=== PATIENT | male | born 1960 | race African-American/Black ===

== ENCOUNTER 2018-09-06 16:54 | Inpatient (IN) ==
[2018-09-06] MEDS ORDERED: SODIUM CHLORIDE 0.9% 1,000 ML IV STA ×2 (18:07→19:18)
[2018-09-06] MEDS ORDERED: ONDANSETRON 4 MG/2 ML VIAL IV STA (18:09)
[2018-09-06 18:13] LABS: Basophils % 0.2 % (0.0-0.8); Eosinophils # 0.1 10*3/uL (0.0-0.87); Eosinophils % 0.4 % (0.00-10.9); Hematocrit 45.9 VOL% (42.0-52.0); Hemoglobin 16.1 GM/DL (14.0-18.0); Immature Granulocytes % 0.7 %; Immature Granulocytes Absolute 0.09 #; Lymphocytes # 1.3 10*3/uL (1.4-4.0); Lymphocytes % 10.3 % (21.2-54.2); Mean Corpuscular HGB Conc 35.1 GM/DL (32-36); Mean Corpuscular Hemoglobin 35 PG (27-34); Mean Corpuscular Volume 100.9 FL (87-102); Monocytes # 1.1 10*3/uL (0.11-0.8); Monocytes % 8.3 % (1.7-12.7); NRBC # 0.03 10*3/uL; Neutrophils # 10.4 10*3/uL (1.4-7.4); Neutrophils % 80.1 % (38.7-73.9); Platelet Count 305 T/CUMM (130-400); Red Blood Count 4.55 MC/CUMM (3.8-5.5); Red Cell Distribution Width 15.5 % (9.3-17.3)
[2018-09-06 18:25] LABS: Alanine Aminotransferase 111 U/L (16-61); Albumin 3.6 G/DL (3.4-5.0); Alkaline Phosphatase 237 U/L (45-117); Aspartate Amino Transferase 86 U/L (0-37); Blood Urea Nitrogen 61 MG/DL (7-18); Calcium 9.2 MG/DL (8.5-10.1); Glucose 110 MG/DL (74-106); Osmolality,Calculated 283.4 MOS/KG (273-304); Potassium 3.3 MMOL/L (3.5-5.1); Sodium 133 MMOL/L (136-145); Total Protein 9.4 G/DL (6.4-8.3)
[2018-09-06 18:53] LABS: Apearance,Urine Slightly Hazy (Clear); Bacteria,Urine Occasional /HPF (Few); Bilirubin,Urine Negative (Negative); Blood, Urine Negative (Negative); Glucose,Urine (UA) Negative (Negative); Hyaline Casts,Urine 89 /LPF (0-3); Ketones,Urine Negative (Negative); Mucus,Urine Occasional /LPF (Occasional); Nitrite,Urine Negative (Negative); Protein,Urine 30 MG/DL; RBC,Urine 1 /HPF (0-4); Squamous Epithelial Cell,Urine Occasional /HPF (0-10); Urine Color Amber (Yellow); Urine Specific Gravity 1.021 (1.001-1.035); WBC,Urine 20 /HPF (0-6)
[2018-09-06] MEDS ORDERED: ONDANSETRON 4 MG/2 ML VIAL IV PRN (20:26)
[2018-09-06] MEDS ORDERED: ACETAMINOPHEN 325 MG TABLET PO PRN (20:26)
[2018-09-06] MEDS ORDERED: DONEPEZIL 5 MG TABLET PO SCH (21:00)
[2018-09-06] MEDS ORDERED: ENOXAPARIN 30 MG/0.3 ML SYRINGE SUBCUT SCH (21:00)
[2018-09-06] MEDS ORDERED: LEVOFLOXACIN INJ 500 MG in PREMIX 1 EACH IV ONE (22:00)
[2018-09-06] MEDS: SODIUM CHLORIDE 0.45% 1,000 ML IV SCH (22:40)
[2018-09-07] MEDS: SODIUM CHLORIDE 0.45% 1,000 ML IV SCH (05:15)
[2018-09-07 06:12] LABS: Basophils % 0.2 % (0.0-0.8); Eosinophils # 0.1 10*3/uL (0.0-0.87); Eosinophils % 0.8 % (0.00-10.9); Hematocrit 34.2 VOL% (42.0-52.0); Hemoglobin 11.7 GM/DL (14.0-18.0); Immature Granulocytes % 0.6 %; Immature Granulocytes Absolute 0.07 #; Lymphocytes # 1.4 10*3/uL (1.4-4.0); Lymphocytes % 12.5 % (21.2-54.2); Mean Corpuscular HGB Conc 34.2 GM/DL (32-36); Mean Corpuscular Hemoglobin 35 PG (27-34); Monocytes # 1.2 10*3/uL (0.11-0.8); Monocytes % 10.8 % (1.7-12.7); Neutrophils # 8.4 10*3/uL (1.4-7.4); Neutrophils % 75.1 % (38.7-73.9); Platelet Count 220 T/CUMM (130-400); Red Blood Count 3.32 MC/CUMM (3.8-5.5); Red Cell Distribution Width 15.4 % (9.3-17.3); White Blood Count 11.1 T/CUMM (4-12)
[2018-09-07 06:51] LABS: % Iron Saturation 52.3 % (18-50); Ferritin 223.4 ng/ml (26-388)
[2018-09-07 07:05] LABS: Calcium 7.9 MG/DL (8.5-10.1); Osmolality,Calculated 285.7 MOS/KG (273-304); Thyroid Stimulating Hormone 0.489 uIU/ml (0.358-3.74)
[2018-09-07 07:21] LABS: Sedimentation Rate-Westergren 71 MM/HR (0-20)
[2018-09-07 07:24] LABS: Albumin 2.5 G/DL (3.4-5.0); Bilirubin,Direct 0.4 MG/DL (0.0-0.20); Bilirubin,Indirect 0.4 MG/DL (0.0-1.0); Bilirubin,Total 0.8 MG/DL (0.2-1.0); Total Protein 6.6 G/DL (6.4-8.3)
[2018-09-07] MEDS ORDERED: MAGNESIUM SULF RIDER 2 GM in PREMIX 1 EACH IV ONE (07:33)
[2018-09-07] MEDS ORDERED: POTASSIUM CHLORIDE RIDER 10 MEQ in PREMIX 1 EACH IV PRN (07:34)
[2018-09-07] MEDS ORDERED: POTASSIUM CHLORIDE INJ 20 MEQ in SODIUM CHLORIDE 0.45% 1,000 ML IV SCH (07:35)
[2018-09-07 07:37] LABS: HIV Antigen/Antibody Result Nonreactive (Nonreactive)
[2018-09-07 07:40] LABS: Folate 8.2 NG/ML (5.4-24.0); Hepatitis A Ab IgM Quant 0.13 Index; Hepatitis A Ab IgM Result Negative (Negative); Hepatitis B Core IgM Quant 0.35 Index; Hepatitis B Core IgM Result Negative (Negative); Hepatitis B Surface Ag Quant < 0.10 Index; Hepatitis B Surface Ag Result Negative (Negative); Hepatitis C Virus Ab Quant 0.02 Index; Hepatitis C Virus Ab Result Negative (Negative); Vitamin B12 610 PG/ML (211-911)
[2018-09-07] MEDS: predniSONE 20 MG TABLET PO SCH (10:14)
[2018-09-07] MEDS: POTASSIUM CHLORIDE 20 MEQ TABLET PO PRN ×3 (10:14→16:43)
[2018-09-07] MEDS: PANTOPRAZOLE 40 MG VIAL IV SCH ×2 (10:16→22:07)
[2018-09-07] MEDS: THIAMINE 200 MG/2 ML VIAL IV SCH (10:23)
[2018-09-07] MEDS: DEXT 5% NACL 0.45% KCL 20 MEQ 20 MEQ/1,000 ML BAG IV SCH ×3 (10:23→19:00)
[2018-09-07 12:09] LABS: Hemoglobin A1 (Alkaline) 97.6 % (96.5-98.5); Hemoglobin A2 (Alkaline) 2.4 % (1.5-3.5)
[2018-09-07 12:11] LABS: Albumin (SPE) 3.1 G/DL (3.2-5.3); Albumin (SPE) Rel % 47.6 %; Alpha 1 (SPE) 0.2 G/DL (0.1-0.4); Alpha 1 (SPE) Rel % 3.2 %; Alpha 2 (SPE) 0.7 G/DL (0.4-1.0); Alpha 2 (SPE) Rel % 10.4 %; Beta (SPE) 0.8 G/DL (0.5-1.1); Total Protein (Chem) 6.5 G/DL (6.4-8.3)
[2018-09-07 12:12] LABS: Beta (SPE) Rel % 12.9 %; Gamma (SPE) 1.7 G/DL (0.7-1.7); Gamma (SPE) Rel % 25.9 %
[2018-09-07] MEDS ORDERED: LEVOFLOXACIN INJ 250 MG in PREMIX 1 EACH IV SCH (21:00)
[2018-09-07] MEDS ORDERED: ENOXAPARIN 40 MG/0.4 ML SYRINGE SUBCUT SCH (21:00)
[2018-09-08 05:50] LABS: Calcium 8.3 MG/DL (8.5-10.1); Osmolality,Calculated 263.8 MOS/KG (273-304); Potassium 4.6 MMOL/L (3.5-5.1)
[2018-09-08] MEDS: DEXT 5% NACL 0.45% KCL 20 MEQ 20 MEQ/1,000 ML BAG IV SCH (06:00)
[2018-09-08] MEDS ORDERED: FLUCONAZOLE 100 MG TABLET PO SCH (09:00)
[2018-09-08] MEDS ORDERED: LIDOCAINE 2% 5 ML VIAL ONE (10:00)
[2018-09-08] MEDS ORDERED: PHENYLEPHRINE 1 MG/10 ML SYRINGE IV ONE (10:00)
[2018-09-08] MEDS ORDERED: PROPOFOL 200 MG/20 ML VIAL IV ONE (10:00)
[2018-09-08] MEDS: PANTOPRAZOLE 40 MG VIAL IV SCH (10:44)
[2018-09-08] MEDS: predniSONE 20 MG TABLET PO SCH (10:44)
[2018-09-08] MEDS: THIAMINE 200 MG/2 ML VIAL IV SCH (10:48)
[2018-09-08 11:14] LABS: Basophils % 0.2 % (0.0-0.8); Eosinophils % 0.2 % (0.00-10.9); Hematocrit 33.1 VOL% (42.0-52.0); Hemoglobin 11.7 GM/DL (14.0-18.0); Immature Granulocytes % 0.4 %; Immature Granulocytes Absolute 0.04 #; Lymphocytes # 1.8 10*3/uL (1.4-4.0); Lymphocytes % 18.2 % (21.2-54.2); Mean Corpuscular HGB Conc 35.3 GM/DL (32-36); Mean Corpuscular Hemoglobin 36 PG (27-34); Mean Corpuscular Volume 101.2 FL (87-102); Mean Platelet Volume 10.9 FL (9.6-12.0); Monocytes # 0.9 10*3/uL (0.11-0.8); Monocytes % 9.2 % (1.7-12.7); Neutrophils # 7.1 10*3/uL (1.4-7.4); Neutrophils % 71.8 % (38.7-73.9); Platelet Count 162 T/CUMM (130-400); Red Blood Count 3.27 MC/CUMM (3.8-5.5); Red Cell Distribution Width 15.2 % (9.3-17.3); White Blood Count 9.8 T/CUMM (4-12)
[2018-09-08 20:14] VITALS: BP 102/59
[2018-09-09 17:00] LABS: TB2 Ag Minus Result -0.01 IU/mL
[2018-09-11 23:20] LABS: IgA Serum (MAYO) 1100 mg/dL (61 - 356)
[2018-09-15 11:12] LABS: Tissue Transglutaminase IgA Ab 1.7 U/mL
== END 2018-09-08 16:21 | disposition home health service (06) | DRG 683 ==
LOC: N.ED 16:54 → N.3E 20:26
PROVIDERS: ADMIT Internal Medicine; ATTEND Internal Medicine

== ENCOUNTER 2021-03-31 08:10 | Inpatient (IN) ==
[2021-03-31] MEDS ORDERED: ACETAMINOPHEN 500 MG TABLET PO STA (09:12)
[2021-03-31 09:21] LABS: Basophils % 0.1 % (0.0-0.8); Hematocrit 33.9 VOL% (42.0-52.0); Hemoglobin 11.5 GM/DL (14.0-18.0); Immature Granulocytes Absolute 0.07 #; Lymphocytes # 1.6 10*3/uL (1.4-4.0); Lymphocytes % 21.7 % (21.2-54.2); Mean Corpuscular HGB Conc 33.9 GM/DL (32-36); Mean Corpuscular Volume 109.7 FL (87-102); Mean Platelet Volume 9.7 FL (9.6-12.0); Monocytes % 7.8 % (1.7-12.7); NRBC # 0.02 10*3/uL; Neutrophils % 69.4 % (38.7-73.9); Platelet Count 158 T/CUMM (130-400); Red Blood Count 3.09 MC/CUMM (3.8-5.5); Red Cell Distribution Width 17.5 % (9.3-17.3); White Blood Count 7.3 T/CUMM (4-12)
[2021-03-31 09:34] LABS: Bacteria,Urine Occasional /HPF (Few); Bilirubin,Urine Negative (Negative); Blood, Urine Negative (Negative); Glucose,Urine (UA) Negative (Negative); Hyaline Casts,Urine 9 /LPF (0-3); Ketones,Urine 20 mg/dL (Negative); Mucus,Urine Occasional /LPF (Occasional); Nitrite,Urine Negative (Negative); Protein,Urine 100 MG/DL; RBC,Urine <1 /HPF (0-4); Squamous Epithelial Cell,Urine Occasional /HPF (0-10); Urine Appearance CLEAR (Clear); Urine Color Amber (Yellow); Urine Specific Gravity 1.013 (1.001-1.035); Urine Urobilinogen < 2.0 EU/DL (0.2-1.0)
[2021-03-31 09:43] LABS: Albumin 2.3 G/DL (3.4-5.0); Bilirubin,Total 2.5 MG/DL (0.20-1.00); Calcium 8.5 MG/DL (8.5-10.1); Osmolality,Calculated 271.8 MOS/KG (273-304); Potassium 3.1 MMOL/L (3.5-5.1); Total Protein 8.6 G/DL (6.4-8.2)
[2021-03-31 09:48] LABS: Barbiturates Screen,Urine Negative (Negative); Benzodiazepines Screen,Urine Negative (Negative); Cannabinoid Screen,Urine Negative (Negative); Opiate Screen,Urine Negative (Negative); Phencyclidine Screen,Urine Negative (Negative)
[2021-03-31 09:59] LABS: Anisocytosis 1+; Band Neutrophils 1 % (0-10); Lymphocytes 21 % (20-55); Nucleated Red Blood Cells 1 (0-5); Segmented Neutrophils 73 % (50-85); Smudge Cells 1+; Total Cells Counted 100
[2021-03-31 10:00] LABS: Macrocytosis 2+
[2021-03-31] MEDS ORDERED: SODIUM CHLORIDE 0.9% 2,000 ML IV STA (10:00)
[2021-03-31] MEDS ORDERED: THIAMINE 200 MG/2 ML VIAL IV STA (11:27)
[2021-03-31] MEDS ORDERED: cefTRIAXone 1,000 MG in SODIUM CHLORIDE 0.9% 100 ML IV STA (11:28)
[2021-03-31] MEDS ORDERED: SODIUM CHLORIDE 0.9% 250 ML IV ONE (11:32)
[2021-03-31] MEDS ORDERED: ALBUTEROL 2.5 MG/3 ML NEB RESP TX PRN (12:13)
[2021-03-31] MEDS ORDERED: BISACODYL 5 MG TABLET PO PRN (12:13)
[2021-03-31] MEDS ORDERED: ONDANSETRON 4 MG/2 ML VIAL IV PRN (12:13)
[2021-03-31] MEDS ORDERED: NICOTINE 21 MG/24 HR PATCH TRANSDERM PRN (12:13)
[2021-03-31] MEDS ORDERED: GLUCAGON 1 MG VIAL IM PRN (12:13)
[2021-03-31] MEDS ORDERED: DEXTROSE 50% 25 GM/50 ML VIAL IV PRN (12:13)
[2021-03-31] MEDS ORDERED: LORazepam 2 MG/1 ML VIAL IV PRN (12:17)
[2021-03-31] MEDS ORDERED: chlordiazePOXIDE 25 MG CAPSULE PO STA (12:24)
[2021-03-31 13:28] LABS: Hepatitis B Core IgM Quant 0.15 Index; Hepatitis B Surface Ag Quant < 0.10 Index; Hepatitis B Surface Ag Result Non-Reactive (NonReactive); Hepatitis C Virus Ab Quant 0.18 Index; Hepatitis C Virus Ab Result Non-Reactive (NonReactive)
[2021-03-31] MEDS: SODIUM CHLORIDE 0.9% 1,000 ML IV SCH (14:23)
[2021-03-31] MEDS ORDERED: POTASSIUM PHOSPHATE 30 MMOL in SODIUM CHLORIDE 0.9% 250 ML IV ONE (15:00)
[2021-03-31] MEDS: PIPERACILLIN/TAZOBACTAM 3,375 MG in SODIUM CHLORIDE 0.9% 100 ML IV SCH ×2 (15:45→20:27)
[2021-03-31] MEDS: ENOXAPARIN 40 MG/0.4 ML SYRINGE SUBCUT SCH (16:08)
[2021-03-31] MEDS: VANCOMYCIN INJ 1,000 MG in SODIUM CHLORIDE 0.9% 250 ML IV SCH (16:08)
[2021-03-31] MEDS: PANTOPRAZOLE 40 MG TABLET PO SCH ×2 (16:08→20:27)
[2021-03-31] MEDS: chlordiazePOXIDE 25 MG CAPSULE PO SCH ×2 (16:08→22:17)
[2021-03-31] MEDS: LACTULOSE 20 GM/30 ML UDCUP PO SCH ×2 (16:08→20:27)
[2021-03-31] MEDS: DONEPEZIL 5 MG TABLET PO SCH (20:27)
[2021-03-31] MEDS: ACETAMINOPHEN 325 MG TABLET PO PRN (22:18)
[2021-04-01] MEDS: VANCOMYCIN INJ 1,000 MG in SODIUM CHLORIDE 0.9% 250 ML IV SCH ×2 (03:45→14:09)
[2021-04-01] MEDS: chlordiazePOXIDE 25 MG CAPSULE PO SCH ×3 (03:46→15:35)
[2021-04-01] MEDS: PIPERACILLIN/TAZOBACTAM 3,375 MG in SODIUM CHLORIDE 0.9% 100 ML IV SCH ×3 (05:02→21:36)
[2021-04-01 06:09] LABS: Basophils % 0.2 % (0.0-0.8); Hematocrit 30.1 VOL% (42.0-52.0); Hemoglobin 10.3 GM/DL (14.0-18.0); Immature Granulocytes % 1.2 %; Immature Granulocytes Absolute 0.12 #; Lymphocytes # 3.2 10*3/uL (1.4-4.0); Mean Corpuscular HGB Conc 34.2 GM/DL (32-36); Mean Corpuscular Volume 109.5 FL (87-102); Mean Platelet Volume 10.2 FL (9.6-12.0); Monocytes % 10.1 % (1.7-12.7); NRBC # 0.02 10*3/uL; Neutrophils % 56.5 % (38.7-73.9); Platelet Count 134 T/CUMM (130-400); Red Blood Count 2.75 MC/CUMM (3.8-5.5); Red Cell Distribution Width 17.5 % (9.3-17.3); White Blood Count 9.9 T/CUMM (4-12)
[2021-04-01 06:40] LABS: Albumin 1.9 G/DL (3.4-5.0); Bilirubin,Total 2.4 MG/DL (0.20-1.00); Calcium 7.2 MG/DL (8.5-10.1); Osmolality,Calculated 274.4 MOS/KG (273-304); Total Protein 7.5 G/DL (6.4-8.2)
[2021-04-01 06:44] LABS: Potassium 2.5 MMOL/L (3.5-5.1)
[2021-04-01 06:51] LABS: Folate 12.94 NG/ML (5.38-24.0)
[2021-04-01 07:30] LABS: Anisocytosis 2+; Macrocytosis 2+; Platelet Estimate Adequate; Target Cells 1+
[2021-04-01] MEDS: PANTOPRAZOLE 40 MG TABLET PO SCH ×3 (10:00→21:36)
[2021-04-01] MEDS: SODIUM CHLORIDE 0.9% 1,000 ML IV SCH ×4 (10:00→20:30)
[2021-04-01] MEDS: LACTULOSE 20 GM/30 ML UDCUP PO SCH ×2 (10:00→21:27)
[2021-04-01] MEDS: POTASSIUM CHLORIDE 20 MEQ TABLET PO PRN ×4 (10:00→21:36)
[2021-04-01] MEDS: FOLIC ACID 1 MG TABLET PO SCH (10:00)
[2021-04-01] MEDS: THIAMINE 100 MG TABLET PO SCH (10:00)
[2021-04-01] MEDS: MULTIVITAMIN (BEROCCA) TABLET PO SCH (10:00)
[2021-04-01] MEDS: ENOXAPARIN 40 MG/0.4 ML SYRINGE SUBCUT SCH (12:23)
[2021-04-01] MEDS ORDERED: MAGNESIUM SULF RIDER 4 GM/100 ML PREMIX IV PRN (16:21)
[2021-04-01] MEDS ORDERED: MAGNESIUM SULF RIDER 2 GM/50 ML PREMIX IV PRN (16:21)
[2021-04-01] MEDS: ACETAMINOPHEN 325 MG TABLET PO PRN (21:27)
[2021-04-01] MEDS: DONEPEZIL 5 MG TABLET PO SCH (21:27)
[2021-04-02] MEDS: SODIUM CHLORIDE 0.9% 1,000 ML IV SCH ×3 (01:09→12:55)
[2021-04-02] MEDS: chlordiazePOXIDE 25 MG CAPSULE PO SCH ×4 (01:09→17:14)
[2021-04-02] MEDS: IBUPROFEN 400 MG TABLET PO PRN (01:11)
[2021-04-02] MEDS: VANCOMYCIN INJ 1,000 MG in SODIUM CHLORIDE 0.9% 250 ML IV SCH ×2 (03:14→16:22)
[2021-04-02] MEDS: PIPERACILLIN/TAZOBACTAM 3,375 MG in SODIUM CHLORIDE 0.9% 100 ML IV SCH ×3 (05:15→20:59)
[2021-04-02 05:18] LABS: Basophils % 0.2 % (0.0-0.8); Hematocrit 29.5 VOL% (42.0-52.0); Hemoglobin 10.1 GM/DL (14.0-18.0); Immature Granulocytes % 2.5 %; Immature Granulocytes Absolute 0.32 #; Lymphocytes # 2.6 10*3/uL (1.4-4.0); Lymphocytes % 19.8 % (21.2-54.2); Mean Corpuscular HGB Conc 34.2 GM/DL (32-36); Mean Corpuscular Volume 109.7 FL (87-102); Monocytes % 6.8 % (1.7-12.7); NRBC # 0.02 10*3/uL; Neutrophils % 70.7 % (38.7-73.9); Platelet Count 143 T/CUMM (130-400); Red Blood Count 2.69 MC/CUMM (3.8-5.5); Red Cell Distribution Width 17.2 % (9.3-17.3)
[2021-04-02 05:50] LABS: Calcium 6.8 MG/DL (8.5-10.1); Osmolality,Calculated 277.3 MOS/KG (273-304); Potassium 3.2 MMOL/L (3.5-5.1)
[2021-04-02 06:01] LABS: Band Neutrophils 14 % (0-10); Lymphocytes 22 % (20-55); Nucleated Red Blood Cells 1 (0-5); Platelet Estimate Adequate; Segmented Neutrophils 57 % (50-85); Total Cells Counted 100
[2021-04-02 06:02] LABS: Anisocytosis 1+; Macrocytosis 2+; Polychromasia Slight; Target Cells Few
[2021-04-02] MEDS: PANTOPRAZOLE 40 MG TABLET PO SCH ×2 (08:57→20:59)
[2021-04-02] MEDS: LACTULOSE 20 GM/30 ML UDCUP PO SCH ×2 (08:57→20:59)
[2021-04-02] MEDS: FOLIC ACID 1 MG TABLET PO SCH (08:57)
[2021-04-02] MEDS: THIAMINE 100 MG TABLET PO SCH (08:57)
[2021-04-02] MEDS: MULTIVITAMIN (BEROCCA) TABLET PO SCH (10:10)
[2021-04-02] MEDS: ENOXAPARIN 40 MG/0.4 ML SYRINGE SUBCUT SCH (12:55)
[2021-04-02] MEDS ORDERED: chlordiazePOXIDE 25 MG CAPSULE PO PRN (17:15)
[2021-04-02] MEDS: DONEPEZIL 5 MG TABLET PO SCH (20:59)
[2021-04-03] MEDS: SODIUM CHLORIDE 0.9% 1,000 ML IV SCH ×2 (02:39→15:16)
[2021-04-03] MEDS: VANCOMYCIN INJ 1,000 MG in SODIUM CHLORIDE 0.9% 250 ML IV SCH (02:39)
[2021-04-03] MEDS: PIPERACILLIN/TAZOBACTAM 3,375 MG in SODIUM CHLORIDE 0.9% 100 ML IV SCH (05:38)
[2021-04-03] MEDS: THIAMINE 100 MG TABLET PO SCH (09:16)
[2021-04-03] MEDS: FOLIC ACID 1 MG TABLET PO SCH (09:16)
[2021-04-03] MEDS: PANTOPRAZOLE 40 MG TABLET PO SCH ×2 (09:16→20:55)
[2021-04-03] MEDS: MULTIVITAMIN (BEROCCA) TABLET PO SCH (09:16)
[2021-04-03] MEDS: LACTULOSE 20 GM/30 ML UDCUP PO SCH ×2 (09:16→20:55)
[2021-04-03] MEDS ORDERED: POTASSIUM CHLORIDE 20 MEQ TABLET PO ONE (15:00)
[2021-04-03] MEDS ORDERED: MAGNESIUM SULF RIDER 2 GM/50 ML PREMIX IV ONE (15:00)
[2021-04-03] MEDS: chlordiazePOXIDE 10 MG CAPSULE PO SCH ×2 (15:16→20:55)
[2021-04-03] MEDS: VALPROIC ACID INJ 500 MG in SODIUM CHLORIDE 0.9% 100 ML IV SCH (18:02)
[2021-04-03] MEDS: DONEPEZIL 5 MG TABLET PO SCH (20:55)
[2021-04-03] MEDS: MAGNESIUM OXIDE 400 MG TABLET PO SCH (20:55)
[2021-04-03] MEDS: ENOXAPARIN 40 MG/0.4 ML SYRINGE SUBCUT SCH (20:56)
[2021-04-03] MEDS: IBUPROFEN 400 MG TABLET PO PRN (20:56)
[2021-04-04] MEDS: SODIUM CHLORIDE 0.9% 1,000 ML IV SCH ×3 (00:37→13:51)
[2021-04-04] MEDS: VALPROIC ACID INJ 500 MG in SODIUM CHLORIDE 0.9% 100 ML IV SCH ×3 (01:30→17:11)
[2021-04-04] MEDS: MULTIVITAMIN (BEROCCA) TABLET PO SCH (08:47)
[2021-04-04] MEDS: LACTULOSE 20 GM/30 ML UDCUP PO SCH ×2 (08:48→21:30)
[2021-04-04] MEDS: PANTOPRAZOLE 40 MG TABLET PO SCH ×2 (08:49→21:30)
[2021-04-04] MEDS: LEVOFLOXACIN 750 MG TABLET PO SCH (08:49)
[2021-04-04] MEDS: FOLIC ACID 1 MG TABLET PO SCH (08:49)
[2021-04-04] MEDS: MAGNESIUM OXIDE 400 MG TABLET PO SCH ×2 (08:49→21:30)
[2021-04-04] MEDS: chlordiazePOXIDE 10 MG CAPSULE PO SCH ×3 (08:49→21:30)
[2021-04-04] MEDS: THIAMINE 100 MG TABLET PO SCH (08:49)
[2021-04-04 13:13] LABS: ABG Base Excess -5.6 MMOL/L (-2.5-2.5); ABG HCO3 19.6 MMOL/L (20-26); ABG Oxygen Saturation 81.4 % (95-100); ABG PCO2 21.8 MM HG (35-48); ABG PH 7.481 (7.35-7.45); ABG PO2 45.6 MM HG (80-95); ABG TCO2 14.6 MMOL/L (23-27)
[2021-04-04] MEDS ORDERED: PIPERACILLIN/TAZOBACTAM 3,375 MG in SODIUM CHLORIDE 0.9% 100 ML IV SCH (14:00)
[2021-04-04] MEDS ORDERED: DEXT 5% NACL 0.45% KCL 20 MEQ 20 MEQ/1,000 ML BAG IV SCH (18:30)
[2021-04-04] MEDS: ALBUTEROL/IPRATROPIUM 3 ML NEB RESP TX SCH (19:40)
[2021-04-04] MEDS: ENOXAPARIN 40 MG/0.4 ML SYRINGE SUBCUT SCH (21:26)
[2021-04-04] MEDS: DONEPEZIL 5 MG TABLET PO SCH (21:29)
[2021-04-05] MEDS: ALBUTEROL/IPRATROPIUM 3 ML NEB RESP TX SCH ×4 (00:03→19:21)
[2021-04-05] MEDS: VALPROIC ACID INJ 500 MG in SODIUM CHLORIDE 0.9% 100 ML IV SCH ×3 (01:07→17:17)
[2021-04-05 01:16] LABS: ABG Base Excess -8.6 MMOL/L (-2.5-2.5); ABG HCO3 17.5 MMOL/L (20-26); ABG Oxygen Saturation 94.8 % (95-100); ABG PH 7.454 (7.35-7.45); ABG PO2 72.9 MM HG (80-95); ABG TCO2 12.6 MMOL/L (23-27); Allen Test Positive
[2021-04-05 01:27] LABS: ABG PCO2 19.8 MM HG (35-48)
[2021-04-05] MEDS ORDERED: SUCCINYLCHOLINE 200 MG/10 ML VIAL ONE (02:23)
[2021-04-05] MEDS ORDERED: ROCURONIUM 100 MG/10 ML VIAL IV ONE ×2 (02:26→02:34)
[2021-04-05] MEDS ORDERED: ETOMIDATE 20 MG/10 ML VIAL IV ONE ×2 (02:30→02:33)
[2021-04-05] MEDS ORDERED: MIDAZOLAM 100 MG in SODIUM CHLORIDE 0.9% 80 ML IV PRN (02:36)
[2021-04-05 04:42] LABS: Basophils % 0.2 % (0.0-0.8); Hematocrit 31.4 VOL% (42.0-52.0); Hemoglobin 10.8 GM/DL (14.0-18.0); Immature Granulocytes % 0.3 %; Immature Granulocytes Absolute 0.03 #; Lymphocytes # 0.7 10*3/uL (1.4-4.0); Lymphocytes % 7.2 % (21.2-54.2); Mean Corpuscular HGB Conc 34.4 GM/DL (32-36); Mean Corpuscular Volume 110.2 FL (87-102); Mean Platelet Volume 10.4 FL (9.6-12.0); NRBC # 0.02 10*3/uL; Neutrophils % 84.3 % (38.7-73.9); Platelet Count 195 T/CUMM (130-400); Red Blood Count 2.85 MC/CUMM (3.8-5.5); Red Cell Distribution Width 17.9 % (9.3-17.3); White Blood Count 10.3 T/CUMM (4-12)
[2021-04-05 04:50] LABS: ABG Base Excess -11.4 MMOL/L (-2.5-2.5); ABG HCO3 15.6 MMOL/L (20-26); ABG Oxygen Saturation 97.4 % (95-100); ABG PCO2 39.1 MM HG (35-48); ABG PH 7.218 (7.35-7.45); ABG PO2 122.5 MM HG (80-95); ABG TCO2 16.8 MMOL/L (23-27); Allen Test Positive; Pt O2 Delivery Device Ventilator
[2021-04-05 05:10] LABS: Band Neutrophils 10 % (0-10); Lymphocytes 6 % (20-55); Nucleated Red Blood Cells 1 (0-5); Platelet Estimate Adequate; Segmented Neutrophils 78 % (50-85); Total Cells Counted 100
[2021-04-05 05:16] LABS: Calcium 7.4 MG/DL (8.5-10.1); Osmolality,Calculated 291.4 MOS/KG (273-304); Potassium 2.9 MMOL/L (3.5-5.1)
[2021-04-05] MEDS: POTASSIUM CHLORIDE 20 MEQ TABLET PO PRN (06:38)
[2021-04-05 07:08] LABS: Bacteria,Urine Occasional /HPF (Few); Bilirubin,Urine Negative (Negative); Blood, Urine Moderate mg/dL (Negative); Glucose,Urine (UA) Negative (Negative); Ketones,Urine Negative (Negative); Mucus,Urine Occasional /LPF (Occasional); Nitrite,Urine Negative (Negative); Protein,Urine 30 MG/DL; RBC,Urine 1 /HPF (0-4); Urine Appearance CLEAR (Clear); Urine Color Yellow (Yellow); Urine Urobilinogen < 2.0 EU/DL (0.2-1.0)
[2021-04-05] MEDS ORDERED: SODIUM BICARB INJ 50 MEQ, POTASSIUM CHLORIDE INJ 20 MEQ in DEXTROSE 5% NACL 0.45% 1,000 ML IV SCH (08:30)
[2021-04-05] MEDS: COLCHICINE 0.6 MG CAPSULE PO SCH ×2 (08:45→20:21)
[2021-04-05] MEDS: FOLIC ACID 1 MG TABLET PO SCH (08:46)
[2021-04-05] MEDS: LACTULOSE 20 GM/30 ML UDCUP PO SCH ×2 (08:46→20:20)
[2021-04-05] MEDS: MULTIVITAMIN (BEROCCA) TABLET PO SCH (08:46)
[2021-04-05] MEDS: LEVOFLOXACIN 750 MG TABLET PO SCH (08:46)
[2021-04-05] MEDS: MAGNESIUM OXIDE 400 MG TABLET PO SCH ×2 (08:46→20:20)
[2021-04-05] MEDS: ASPIRIN CHEW 81 MG TABLET PO SCH (08:46)
[2021-04-05] MEDS: chlordiazePOXIDE 10 MG CAPSULE PO SCH ×3 (08:46→20:20)
[2021-04-05] MEDS: PANTOPRAZOLE 40 MG VIAL IV SCH ×2 (08:47→20:21)
[2021-04-05] MEDS: THIAMINE 200 MG/2 ML VIAL IV SCH (08:47)
[2021-04-05] MEDS: POTASSIUM BICARB EFFERVESCENT 20 MEQ TAB.EFF PO PRN ×5 (09:29→20:20)
[2021-04-05] MEDS ORDERED: MAGNESIUM SULF RIDER 4 GM/100 ML PREMIX IV ONE (10:00)
[2021-04-05] MEDS: PIPERACILLIN/TAZOBACTAM 3,375 MG in SODIUM CHLORIDE 0.9% 100 ML IV SCH ×2 (10:49→17:41)
[2021-04-05] MEDS ORDERED: SODIUM CHLORIDE 0.9% 500 ML IV ONE (14:19)
[2021-04-05] MEDS: DONEPEZIL 5 MG TABLET PO SCH (20:20)
[2021-04-05] MEDS: ENOXAPARIN 40 MG/0.4 ML SYRINGE SUBCUT SCH (20:22)
[2021-04-06] MEDS: VALPROIC ACID INJ 500 MG in SODIUM CHLORIDE 0.9% 100 ML IV SCH ×3 (01:55→17:32)
[2021-04-06] MEDS: PIPERACILLIN/TAZOBACTAM 3,375 MG in SODIUM CHLORIDE 0.9% 100 ML IV SCH ×2 (02:20→10:00)
[2021-04-06 03:02] LABS: Eosinophils % 0.2 % (0.00-10.9); Mean Corpuscular HGB Conc 33.8 GM/DL (32-36); NRBC # 0.03 10*3/uL
[2021-04-06 03:07] LABS: Basophils % 0.4 % (0.0-0.8); Hematocrit 26.3 VOL% (42.0-52.0); Immature Granulocytes % 0.5 %; Immature Granulocytes Absolute 0.05 #; Lymphocytes % 10.2 % (21.2-54.2); Mean Corpuscular Volume 109.6 FL (87-102); Mean Platelet Volume 10.6 FL (9.6-12.0); Monocytes % 9.9 % (1.7-12.7); Neutrophils % 78.8 % (38.7-73.9); Red Cell Distribution Width 17.9 % (9.3-17.3); White Blood Count 9.7 T/CUMM (4-12)
[2021-04-06 03:14] LABS: Hemoglobin 8.9 GM/DL (14.0-18.0); Platelet Count 134 T/CUMM (130-400)
[2021-04-06 03:15] LABS: Albumin 1.2 G/DL (3.4-5.0); Bilirubin,Total 1.7 MG/DL (0.20-1.00); Calcium 7.3 MG/DL (8.5-10.1); Potassium 3.1 MMOL/L (3.5-5.1); Total Protein 6.3 G/DL (6.4-8.2)
[2021-04-06] MEDS ORDERED: LACTATED RINGERS 500 ML IV ONE (03:26)
[2021-04-06 03:36] LABS: Albumin 1.2 G/DL (3.4-5.0); Bilirubin,Direct 1.4 MG/DL (0.0-0.20); Bilirubin,Indirect 0.3 MG/DL (0.0-1.0); Bilirubin,Total 1.7 MG/DL (0.20-1.00); Total Protein 5.8 G/DL (6.4-8.2)
[2021-04-06 03:44] LABS: Band Neutrophils 16 % (0-10); Lymphocytes 11 % (20-55); Platelet Estimate Normal; Segmented Neutrophils 70 % (50-85); Total Cells Counted 100
[2021-04-06 03:45] LABS: Hypochromasia 1+; Microcytosis 1+
[2021-04-06] MEDS ORDERED: SODIUM BICARB IV SCH (04:00)
[2021-04-06] MEDS ORDERED: DEXTROSE 5% IV SCH (04:00)
[2021-04-06] MEDS ORDERED: POTASSIUM CHLORIDE IV SCH (04:00)
[2021-04-06] MEDS: SODIUM BICARB INJ 50 MEQ, POTASSIUM CHLORIDE INJ 20 MEQ in DEXTROSE 5% 1,000 ML IV SCH (04:10)
[2021-04-06 04:51] LABS: ABG Base Excess -5.1 MMOL/L (-2.5-2.5); ABG Oxygen Saturation 99.4 % (95-100); ABG PCO2 26.7 MM HG (35-48); ABG PH 7.446 (7.35-7.45); ABG TCO2 18.8 MMOL/L (23-27)
[2021-04-06] MEDS: POTASSIUM BICARB EFFERVESCENT 20 MEQ TAB.EFF PO PRN ×6 (05:30→21:40)
[2021-04-06] MEDS: ALBUTEROL/IPRATROPIUM 3 ML NEB RESP TX SCH ×4 (07:43→18:24)
[2021-04-06] MEDS: ASPIRIN CHEW 81 MG TABLET PO SCH (09:59)
[2021-04-06] MEDS: LACTULOSE 20 GM/30 ML UDCUP PO SCH (09:59)
[2021-04-06] MEDS: FOLIC ACID 1 MG TABLET PO SCH (10:00)
[2021-04-06] MEDS: COLCHICINE 0.6 MG CAPSULE PO SCH ×2 (10:00→20:07)
[2021-04-06] MEDS: LEVOFLOXACIN 750 MG TABLET PO SCH (10:00)
[2021-04-06] MEDS: MULTIVITAMIN (BEROCCA) TABLET PO SCH (10:00)
[2021-04-06] MEDS: THIAMINE 200 MG/2 ML VIAL IV SCH (10:01)
[2021-04-06] MEDS: PANTOPRAZOLE 40 MG VIAL IV SCH ×2 (10:04→20:04)
[2021-04-06] MEDS: MAGNESIUM OXIDE 400 MG TABLET PO SCH ×2 (10:08→20:07)
[2021-04-06] MEDS: chlordiazePOXIDE 10 MG CAPSULE PO SCH (10:26)
[2021-04-06] MEDS: MEROPENEM 500 MG in SODIUM CHLORIDE 0.9% 100 ML IV SCH ×3 (12:07→23:00)
[2021-04-06] MEDS: VANCOMYCIN 50 MG/ML 60 ML/BOTTLE PO SCH ×2 (17:33→23:32)
[2021-04-06] MEDS: ENOXAPARIN 40 MG/0.4 ML SYRINGE SUBCUT SCH (20:06)
[2021-04-06] MEDS: DONEPEZIL 5 MG TABLET PO SCH (20:07)
[2021-04-07] MEDS: ALBUTEROL/IPRATROPIUM 3 ML NEB RESP TX SCH ×4 (00:01→19:10)
[2021-04-07] MEDS: VALPROIC ACID INJ 500 MG in SODIUM CHLORIDE 0.9% 100 ML IV SCH ×3 (00:20→17:43)
[2021-04-07] MEDS: SODIUM BICARB INJ 50 MEQ, POTASSIUM CHLORIDE INJ 20 MEQ in DEXTROSE 5% 1,000 ML IV SCH ×3 (00:45→23:14)
[2021-04-07 03:16] LABS: ABG Base Excess -0.3 MMOL/L (-2.5-2.5); ABG HCO3 24.2 MMOL/L (20-26); ABG PCO2 31.2 MM HG (35-48); ABG PH 7.471 (7.35-7.45); ABG TCO2 20.9 MMOL/L (23-27)
[2021-04-07 04:08] LABS: Basophils % 0.2 % (0.0-0.8); Eosinophils # 0.1 10*3/uL (0.0-0.87); Eosinophils % 0.8 % (0.00-10.9); Hematocrit 25.2 VOL% (42.0-52.0); Hemoglobin 8.9 GM/DL (14.0-18.0); Immature Granulocytes % 2.5 %; Immature Granulocytes Absolute 0.28 #; Lymphocytes # 1.7 10*3/uL (1.4-4.0); Lymphocytes % 15.3 % (21.2-54.2); Mean Corpuscular HGB Conc 35.3 GM/DL (32-36); Mean Corpuscular Volume 107.2 FL (87-102); Mean Platelet Volume 10.9 FL (9.6-12.0); Monocytes % 8.7 % (1.7-12.7); NRBC # 0.06 10*3/uL; Neutrophils % 72.5 % (38.7-73.9); Platelet Count 111 T/CUMM (130-400); Red Blood Count 2.35 MC/CUMM (3.8-5.5); Red Cell Distribution Width 17.4 % (9.3-17.3); White Blood Count 11.2 T/CUMM (4-12)
[2021-04-07 04:19] LABS: Albumin 1.3 G/DL (3.4-5.0); Bilirubin,Total 1.3 MG/DL (0.20-1.00); Calcium 7.3 MG/DL (8.5-10.1); Osmolality,Calculated 295.3 MOS/KG (273-304); Potassium 3.7 MMOL/L (3.5-5.1); Total Protein 6.4 G/DL (6.4-8.2)
[2021-04-07 04:53] LABS: Band Neutrophils 3 % (0-10); Eosinophils 1 % (0-10); Lymphocytes 22 % (20-55); Segmented Neutrophils 69 % (50-85); Total Cells Counted 100
[2021-04-07 04:54] LABS: Hypochromasia 1+
[2021-04-07 04:55] LABS: Anisocytosis 1+; Microcytosis 1+; Platelet Estimate Decreased; Target Cells Few
[2021-04-07] MEDS: MEROPENEM 500 MG in SODIUM CHLORIDE 0.9% 100 ML IV SCH ×4 (06:22→23:21)
[2021-04-07] MEDS: VANCOMYCIN 50 MG/ML 60 ML/BOTTLE PO SCH ×4 (06:23→23:22)
[2021-04-07] MEDS: POTASSIUM BICARB EFFERVESCENT 20 MEQ TAB.EFF PO PRN (06:23)
[2021-04-07] MEDS: LACTULOSE 20 GM/30 ML UDCUP PO SCH (09:21)
[2021-04-07] MEDS: MULTIVITAMIN (BEROCCA) TABLET PO SCH (09:21)
[2021-04-07] MEDS: FOLIC ACID 1 MG TABLET PO SCH (09:21)
[2021-04-07] MEDS: ASPIRIN CHEW 81 MG TABLET PO SCH (09:21)
[2021-04-07] MEDS: COLCHICINE 0.6 MG CAPSULE PO SCH ×2 (09:21→20:40)
[2021-04-07] MEDS: MAGNESIUM OXIDE 400 MG TABLET PO SCH ×2 (09:21→20:40)
[2021-04-07] MEDS: PANTOPRAZOLE 40 MG VIAL IV SCH ×2 (09:22→20:38)
[2021-04-07] MEDS: THIAMINE 200 MG/2 ML VIAL IV SCH (09:26)
[2021-04-07] MEDS: ENOXAPARIN 40 MG/0.4 ML SYRINGE SUBCUT SCH (20:40)
[2021-04-07] MEDS: DONEPEZIL 5 MG TABLET PO SCH (20:40)
[2021-04-08] MEDS: ALBUTEROL/IPRATROPIUM 3 ML NEB RESP TX SCH ×4 (01:30→18:57)
[2021-04-08] MEDS: VALPROIC ACID INJ 500 MG in SODIUM CHLORIDE 0.9% 100 ML IV SCH ×3 (01:45→17:29)
[2021-04-08 02:20] LABS: ABG Base Excess 1.3 MMOL/L (-2.5-2.5); ABG PCO2 30.9 MM HG (35-48); ABG PH 7.509 (7.35-7.45); ABG PO2 155.3 MM HG (80-95)
[2021-04-08 03:56] LABS: Basophils # 0.1 10*3/uL (0.0-0.2); Basophils % 0.4 % (0.0-0.8); Eosinophils # 0.1 10*3/uL (0.0-0.87); Eosinophils % 0.5 % (0.00-10.9); Hemoglobin 8.4 GM/DL (14.0-18.0); Immature Granulocytes % 3.9 %; Immature Granulocytes Absolute 0.56 #; Lymphocytes # 2.5 10*3/uL (1.4-4.0); Lymphocytes % 17.2 % (21.2-54.2); Mean Corpuscular Volume 106.7 FL (87-102); Mean Platelet Volume 10.9 FL (9.6-12.0); Monocytes % 8.3 % (1.7-12.7); NRBC # 0.07 10*3/uL; Neutrophils % 69.7 % (38.7-73.9); Platelet Count 116 T/CUMM (130-400); Red Blood Count 2.25 MC/CUMM (3.8-5.5); Red Cell Distribution Width 17.5 % (9.3-17.3); White Blood Count 14.4 T/CUMM (4-12)
[2021-04-08 04:34] LABS: Albumin 1.2 G/DL (3.4-5.0); Bilirubin,Total 1.3 MG/DL (0.20-1.00); Calcium 7.5 MG/DL (8.5-10.1); Osmolality,Calculated 283.1 MOS/KG (273-304); Potassium 3.9 MMOL/L (3.5-5.1); Total Protein 6.4 G/DL (6.4-8.2)
[2021-04-08 04:49] LABS: Band Neutrophils 2 % (0-10); Hypochromasia Slight; Lymphocytes 12 % (20-55); Macrocytosis Slight; Nucleated Red Blood Cells 1 (0-5); Platelet Estimate Normal; Segmented Neutrophils 78 % (50-85)
[2021-04-08 04:50] LABS: Total Cells Counted 100
[2021-04-08] MEDS: MEROPENEM 500 MG in SODIUM CHLORIDE 0.9% 100 ML IV SCH ×3 (05:40→17:33)
[2021-04-08] MEDS: POTASSIUM BICARB EFFERVESCENT 20 MEQ TAB.EFF PO PRN (06:00)
[2021-04-08] MEDS: VANCOMYCIN 50 MG/ML 60 ML/BOTTLE PO SCH ×3 (06:00→17:34)
[2021-04-08] MEDS: COLCHICINE 0.6 MG CAPSULE PO SCH ×2 (10:35→20:46)
[2021-04-08] MEDS: FOLIC ACID 1 MG TABLET PO SCH (10:35)
[2021-04-08] MEDS: MAGNESIUM OXIDE 400 MG TABLET PO SCH ×2 (10:35→20:46)
[2021-04-08] MEDS: MULTIVITAMIN (BEROCCA) TABLET PO SCH (10:35)
[2021-04-08] MEDS: ASPIRIN CHEW 81 MG TABLET PO SCH (10:35)
[2021-04-08] MEDS: LACTULOSE 20 GM/30 ML UDCUP PO SCH (10:36)
[2021-04-08] MEDS: PANTOPRAZOLE 40 MG VIAL IV SCH ×2 (10:36→20:46)
[2021-04-08] MEDS: THIAMINE 200 MG/2 ML VIAL IV SCH (10:40)
[2021-04-08] MEDS: SODIUM BICARB INJ 50 MEQ, POTASSIUM CHLORIDE INJ 20 MEQ in DEXTROSE 5% 1,000 ML IV SCH ×2 (17:28→20:46)
[2021-04-08] MEDS: DONEPEZIL 5 MG TABLET PO SCH (20:46)
[2021-04-08] MEDS: ENOXAPARIN 40 MG/0.4 ML SYRINGE SUBCUT SCH (20:46)
[2021-04-09] MEDS: VANCOMYCIN 50 MG/ML 60 ML/BOTTLE PO SCH ×4 (00:26→18:27)
[2021-04-09] MEDS: VALPROIC ACID INJ 500 MG in SODIUM CHLORIDE 0.9% 100 ML IV SCH ×3 (00:26→18:27)
[2021-04-09] MEDS: MEROPENEM 500 MG in SODIUM CHLORIDE 0.9% 100 ML IV SCH ×2 (00:26→05:44)
[2021-04-09] MEDS: ALBUTEROL/IPRATROPIUM 3 ML NEB RESP TX SCH ×5 (00:27→19:33)
[2021-04-09 03:08] LABS: ABG Base Excess 2.7 MMOL/L (-2.5-2.5); ABG HCO3 26.6 MMOL/L (20-26); ABG Oxygen Saturation 98.6 % (95-100); ABG PCO2 37.7 MM HG (35-48); ABG PH 7.466 (7.35-7.45); ABG PO2 127.9 MM HG (80-95); ABG TCO2 27.7 MMOL/L (23-27)
[2021-04-09 04:02] LABS: Basophils # 0.1 10*3/uL (0.0-0.2); Basophils % 0.4 % (0.0-0.8); Eosinophils # 0.1 10*3/uL (0.0-0.87); Eosinophils % 0.6 % (0.00-10.9); Hematocrit 24.5 VOL% (42.0-52.0); Hemoglobin 8.5 GM/DL (14.0-18.0); Immature Granulocytes % 5.5 %; Immature Granulocytes Absolute 0.85 #; Lymphocytes # 2.6 10*3/uL (1.4-4.0); Lymphocytes % 16.9 % (21.2-54.2); Mean Corpuscular HGB Conc 34.7 GM/DL (32-36); Mean Platelet Volume 11.2 FL (9.6-12.0); Monocytes % 10.5 % (1.7-12.7); NRBC # 0.05 10*3/uL; Neutrophils % 66.1 % (38.7-73.9); Platelet Count 109 T/CUMM (130-400); Red Blood Count 2.29 MC/CUMM (3.8-5.5); Red Cell Distribution Width 17.2 % (9.3-17.3); White Blood Count 15.5 T/CUMM (4-12)
[2021-04-09 04:26] LABS: Albumin 1.1 G/DL (3.4-5.0); Bilirubin,Total 1.5 MG/DL (0.20-1.00); Calcium 7.6 MG/DL (8.5-10.1); Osmolality,Calculated 283.1 MOS/KG (273-304); Potassium 4.2 MMOL/L (3.5-5.1); Total Protein 6.4 G/DL (6.4-8.2)
[2021-04-09 04:27] LABS: Band Neutrophils 8 % (0-10); Hypochromasia 1+; Lymphocytes 12 % (20-55); Metamyelocytes 1 %; Myelocytes 1 %; Segmented Neutrophils 68 % (50-85); Target Cells Few; Total Cells Counted 100
[2021-04-09 04:28] LABS: Anisocytosis 1+; Macrocytosis 1+; Platelet Estimate Decreased
[2021-04-09] MEDS: ASPIRIN CHEW 81 MG TABLET PO SCH (10:16)
[2021-04-09] MEDS: MULTIVITAMIN (BEROCCA) TABLET PO SCH (10:16)
[2021-04-09] MEDS: COLCHICINE 0.6 MG CAPSULE PO SCH ×2 (10:17→20:50)
[2021-04-09] MEDS: LACTULOSE 20 GM/30 ML UDCUP PO SCH (10:17)
[2021-04-09] MEDS: PANTOPRAZOLE 40 MG VIAL IV SCH ×2 (10:28→20:51)
[2021-04-09] MEDS: FOLIC ACID 1 MG TABLET PO SCH (10:28)
[2021-04-09] MEDS: MAGNESIUM OXIDE 400 MG TABLET PO SCH ×2 (10:28→20:50)
[2021-04-09] MEDS: THIAMINE 200 MG/2 ML VIAL IV SCH (10:28)
[2021-04-09] MEDS: MORPHINE 2 MG/1 ML SYRINGE IV PRN (13:02)
[2021-04-09] MEDS: LORazepam 2 MG/1 ML VIAL IV PRN (13:03)
[2021-04-09] MEDS ORDERED: METOPROLOL TARTRATE 5 MG/5 ML VIAL IV ONE (13:56)
[2021-04-09] MEDS: SODIUM BICARB INJ 50 MEQ, POTASSIUM CHLORIDE INJ 20 MEQ in DEXTROSE 5% 1,000 ML IV SCH ×2 (15:00→17:17)
[2021-04-09] MEDS: DONEPEZIL 5 MG TABLET PO SCH (20:51)
[2021-04-09] MEDS: ENOXAPARIN 40 MG/0.4 ML SYRINGE SUBCUT SCH (20:51)
[2021-04-10] MEDS: VANCOMYCIN 50 MG/ML 60 ML/BOTTLE PO SCH ×5 (00:50→23:45)
[2021-04-10] MEDS: ALBUTEROL/IPRATROPIUM 3 ML NEB RESP TX SCH ×4 (00:50→19:42)
[2021-04-10] MEDS: VALPROIC ACID INJ 500 MG in SODIUM CHLORIDE 0.9% 100 ML IV SCH ×3 (00:51→18:24)
[2021-04-10 03:56] LABS: Basophils % 0.3 % (0.0-0.8); Eosinophils # 0.1 10*3/uL (0.0-0.87); Eosinophils % 0.4 % (0.00-10.9); Hematocrit 23.6 VOL% (42.0-52.0); Hemoglobin 8.1 GM/DL (14.0-18.0); Immature Granulocytes % 7.1 %; Immature Granulocytes Absolute 1.05 #; Lymphocytes # 2.4 10*3/uL (1.4-4.0); Lymphocytes % 16.4 % (21.2-54.2); Mean Corpuscular HGB Conc 34.3 GM/DL (32-36); Mean Corpuscular Volume 108.8 FL (87-102); Mean Platelet Volume 11.7 FL (9.6-12.0); Monocytes % 11.6 % (1.7-12.7); NRBC # 0.03 10*3/uL; Neutrophils % 64.2 % (38.7-73.9); Platelet Count 104 T/CUMM (130-400); Red Blood Count 2.17 MC/CUMM (3.8-5.5); Red Cell Distribution Width 17.2 % (9.3-17.3); White Blood Count 14.8 T/CUMM (4-12)
[2021-04-10 04:15] LABS: Band Neutrophils 4 % (0-10); Hypochromasia 1+; Lymphocytes 20 % (20-55); Microcytosis 1+; Platelet Estimate Decreased; Segmented Neutrophils 64 % (50-85); Total Cells Counted 100
[2021-04-10 04:19] LABS: Bilirubin,Total 1.4 MG/DL (0.20-1.00); Calcium 7.9 MG/DL (8.5-10.1); Osmolality,Calculated 282.3 MOS/KG (273-304); Potassium 4.2 MMOL/L (3.5-5.1); Total Protein 6.5 G/DL (6.4-8.2)
[2021-04-10 04:39] LABS: ABG Base Excess 2.4 MMOL/L (-2.5-2.5); ABG HCO3 26.6 MMOL/L (20-26); ABG Oxygen Saturation 99.3 % (95-100); ABG PCO2 39.4 MM HG (35-48); ABG PH 7.439 (7.35-7.45); ABG TCO2 24.6 MMOL/L (23-27)
[2021-04-10] MEDS ORDERED: SODIUM CHLORIDE 0.9% 1,000 ML IV PRN (07:09)
[2021-04-10] MEDS: FOLIC ACID 1 MG TABLET PO SCH (08:52)
[2021-04-10] MEDS: ASPIRIN CHEW 81 MG TABLET PO SCH (08:52)
[2021-04-10] MEDS: PANTOPRAZOLE 40 MG VIAL IV SCH ×2 (08:52→21:15)
[2021-04-10] MEDS: LACTULOSE 20 GM/30 ML UDCUP PO SCH (08:52)
[2021-04-10] MEDS: MAGNESIUM OXIDE 400 MG TABLET PO SCH ×2 (08:52→21:15)
[2021-04-10] MEDS: MULTIVITAMIN (BEROCCA) TABLET PO SCH (08:52)
[2021-04-10] MEDS: COLCHICINE 0.6 MG CAPSULE PO SCH ×2 (08:52→21:15)
[2021-04-10] MEDS: THIAMINE 200 MG/2 ML VIAL IV SCH (08:53)
[2021-04-10] MEDS: SODIUM BICARB INJ 50 MEQ, POTASSIUM CHLORIDE INJ 20 MEQ in DEXTROSE 5% 1,000 ML IV SCH (14:18)
[2021-04-10] MEDS: DONEPEZIL 5 MG TABLET PO SCH (21:14)
[2021-04-10] MEDS: ENOXAPARIN 40 MG/0.4 ML SYRINGE SUBCUT SCH (21:15)
[2021-04-10] MEDS: ACETAMINOPHEN 325 MG TABLET PO PRN (23:45)
[2021-04-11] MEDS: VALPROIC ACID INJ 500 MG in SODIUM CHLORIDE 0.9% 100 ML IV SCH ×3 (00:02→18:06)
[2021-04-11] MEDS: ALBUTEROL/IPRATROPIUM 3 ML NEB RESP TX SCH ×4 (00:11→18:47)
[2021-04-11 04:28] LABS: Basophils % 0.2 % (0.0-0.8); Eosinophils % 0.2 % (0.00-10.9); Hematocrit 26.7 VOL% (42.0-52.0); Hemoglobin 9.1 GM/DL (14.0-18.0); Immature Granulocytes % 6.2 %; Immature Granulocytes Absolute 1.05 #; Lymphocytes # 2.9 10*3/uL (1.4-4.0); Lymphocytes % 16.9 % (21.2-54.2); Mean Corpuscular HGB Conc 34.1 GM/DL (32-36); Mean Corpuscular Volume 104.3 FL (87-102); Mean Platelet Volume 11.7 FL (9.6-12.0); Monocytes % 11.7 % (1.7-12.7); NRBC # 0.03 10*3/uL; Neutrophils % 64.8 % (38.7-73.9); Platelet Count 116 T/CUMM (130-400); Red Blood Count 2.56 MC/CUMM (3.8-5.5); White Blood Count 17.1 T/CUMM (4-12)
[2021-04-11 04:48] LABS: Band Neutrophils 1 % (0-10); Hypochromasia 1+; Lymphocytes 17 % (20-55); Platelet Estimate Decreased; Segmented Neutrophils 72 % (50-85); Total Cells Counted 100
[2021-04-11 04:48] LABS: ABG Base Excess 3.3 MMOL/L (-2.5-2.5); ABG HCO3 27.3 MMOL/L (20-26); ABG Oxygen Saturation 99.1 % (95-100); ABG PCO2 39.8 MM HG (35-48); ABG PH 7.447 (7.35-7.45); ABG TCO2 23.6 MMOL/L (23-27)
[2021-04-11 04:49] LABS: Macrocytosis Slight
[2021-04-11] MEDS: VANCOMYCIN 50 MG/ML 60 ML/BOTTLE PO SCH ×3 (06:10→18:08)
[2021-04-11] MEDS: ASPIRIN CHEW 81 MG TABLET PO SCH (08:27)
[2021-04-11] MEDS: FOLIC ACID 1 MG TABLET PO SCH (08:27)
[2021-04-11] MEDS: MULTIVITAMIN (BEROCCA) TABLET PO SCH (08:27)
[2021-04-11] MEDS: MAGNESIUM OXIDE 400 MG TABLET PO SCH ×2 (08:27→21:02)
[2021-04-11] MEDS: COLCHICINE 0.6 MG CAPSULE PO SCH ×2 (08:28→21:02)
[2021-04-11] MEDS: LACTULOSE 20 GM/30 ML UDCUP PO SCH (08:28)
[2021-04-11] MEDS: THIAMINE 200 MG/2 ML VIAL IV SCH (08:29)
[2021-04-11] MEDS: PANTOPRAZOLE 40 MG VIAL IV SCH ×2 (08:32→21:02)
[2021-04-11 08:40] LABS: Bilirubin,Total 1.6 MG/DL (0.20-1.00); Osmolality,Calculated 275.7 MOS/KG (273-304); Potassium 4.1 MMOL/L (3.5-5.1); Total Protein 6.7 G/DL (6.4-8.2)
[2021-04-11 11:05] LABS: Bacteria,Urine Occasional /HPF (Few); Bilirubin,Urine Negative (Negative); Blood, Urine Small mg/dL (Negative); Glucose,Urine (UA) Negative (Negative); Ketones,Urine Negative (Negative); Mucus,Urine Occasional /LPF (Occasional); Nitrite,Urine Negative (Negative); Protein,Urine Negative; RBC,Urine 18 /HPF (0-4); Urine Appearance CLEAR (Clear); Urine Color Amber (Yellow); Urine Specific Gravity 1.013 (1.001-1.035); Urine Urobilinogen < 2.0 EU/DL (0.2-1.0)
[2021-04-11] MEDS: LORazepam 2 MG/1 ML VIAL IV PRN ×2 (11:26→15:25)
[2021-04-11] MEDS: MORPHINE 2 MG/1 ML SYRINGE IV PRN (11:28)
[2021-04-11] MEDS: SODIUM BICARB INJ 50 MEQ, POTASSIUM CHLORIDE INJ 20 MEQ in DEXTROSE 5% 1,000 ML IV SCH (11:58)
[2021-04-11] MEDS: CEFEPIME 1,000 MG in SODIUM CHLORIDE 0.9% 100 ML IV SCH ×3 (12:06→21:02)
[2021-04-11] MEDS: VANCOMYCIN INJ 1,000 MG in SODIUM CHLORIDE 0.9% 250 ML IV SCH (12:18)
[2021-04-11] MEDS: METOCLOPRAMIDE 10 MG/2 ML VIAL IV SCH ×2 (12:30→18:08)
[2021-04-11] MEDS: ENOXAPARIN 40 MG/0.4 ML SYRINGE SUBCUT SCH (21:01)
[2021-04-11] MEDS: DONEPEZIL 5 MG TABLET PO SCH (21:01)
[2021-04-12] MEDS: METOCLOPRAMIDE 10 MG/2 ML VIAL IV SCH ×4 (00:24→17:05)
[2021-04-12] MEDS: VANCOMYCIN INJ 1,000 MG in SODIUM CHLORIDE 0.9% 250 ML IV SCH ×2 (00:24→11:30)
[2021-04-12] MEDS: VANCOMYCIN 50 MG/ML 60 ML/BOTTLE PO SCH ×4 (00:24→17:06)
[2021-04-12] MEDS: ALBUTEROL/IPRATROPIUM 3 ML NEB RESP TX SCH ×4 (00:49→18:06)
[2021-04-12] MEDS: VALPROIC ACID INJ 500 MG in SODIUM CHLORIDE 0.9% 100 ML IV SCH ×3 (00:50→16:52)
[2021-04-12 04:05] LABS: ABG Base Excess 1.3 MMOL/L (-2.5-2.5); ABG HCO3 25.2 MMOL/L (20-26); ABG Oxygen Saturation 96.6 % (95-100); ABG PH 7.451 (7.35-7.45); ABG PO2 89.2 MM HG (80-95); ABG TCO2 26.3 MMOL/L (23-27)
[2021-04-12 04:30] LABS: Basophils # 0.1 10*3/uL (0.0-0.2); Basophils % 0.3 % (0.0-0.8); Eosinophils # 0.1 10*3/uL (0.0-0.87); Eosinophils % 0.3 % (0.00-10.9); Hemoglobin 9.5 GM/DL (14.0-18.0); Immature Granulocytes % 5.3 %; Immature Granulocytes Absolute 1.16 #; Lymphocytes # 2.1 10*3/uL (1.4-4.0); Lymphocytes % 9.8 % (21.2-54.2); Mean Corpuscular HGB Conc 33.9 GM/DL (32-36); Mean Corpuscular Volume 102.9 FL (87-102); Mean Platelet Volume 11.3 FL (9.6-12.0); NRBC # 0.02 10*3/uL; Neutrophils % 73.3 % (38.7-73.9); Platelet Count 147 T/CUMM (130-400); Red Blood Count 2.72 MC/CUMM (3.8-5.5); Red Cell Distribution Width 18.7 % (9.3-17.3); White Blood Count 21.9 T/CUMM (4-12)
[2021-04-12] MEDS: CEFEPIME 1,000 MG in SODIUM CHLORIDE 0.9% 100 ML IV SCH ×4 (04:36→20:41)
[2021-04-12 04:52] LABS: Bilirubin,Total 1.7 MG/DL (0.20-1.00); Calcium 8.3 MG/DL (8.5-10.1); Osmolality,Calculated 274.8 MOS/KG (273-304); Potassium 4.2 MMOL/L (3.5-5.1); Total Protein 7.1 G/DL (6.4-8.2)
[2021-04-12 04:58] LABS: Band Neutrophils 2 % (0-10); Hypochromasia 1+; Lymphocytes 5 % (20-55); Platelet Estimate Adequate; Segmented Neutrophils 80 % (50-85); Total Cells Counted 100
[2021-04-12 04:59] LABS: Macrocytosis Slight
[2021-04-12] MEDS ORDERED: MAGNESIUM SULF RIDER 4 GM/100 ML PREMIX IV ONE (09:30)
[2021-04-12] MEDS: MAGNESIUM OXIDE 400 MG TABLET PO SCH ×2 (10:03→20:40)
[2021-04-12] MEDS: FOLIC ACID 1 MG TABLET PO SCH (10:03)
[2021-04-12] MEDS: MULTIVITAMIN (BEROCCA) TABLET PO SCH (10:03)
[2021-04-12] MEDS: ASPIRIN CHEW 81 MG TABLET PO SCH (10:03)
[2021-04-12] MEDS: PANTOPRAZOLE 40 MG VIAL IV SCH ×2 (10:05→20:40)
[2021-04-12] MEDS: THIAMINE 200 MG/2 ML VIAL IV SCH (10:06)
[2021-04-12] MEDS: DONEPEZIL 5 MG TABLET PO SCH (20:40)
[2021-04-12] MEDS: ENOXAPARIN 40 MG/0.4 ML SYRINGE SUBCUT SCH (20:40)
[2021-04-13] MEDS: VANCOMYCIN INJ 1,000 MG in SODIUM CHLORIDE 0.9% 250 ML IV SCH (00:38)
[2021-04-13] MEDS: VANCOMYCIN 50 MG/ML 60 ML/BOTTLE PO SCH ×4 (00:39→17:15)
[2021-04-13] MEDS: METOCLOPRAMIDE 10 MG/2 ML VIAL IV SCH ×4 (00:39→17:14)
[2021-04-13] MEDS: VALPROIC ACID INJ 500 MG in SODIUM CHLORIDE 0.9% 100 ML IV SCH ×3 (02:23→17:14)
[2021-04-13] MEDS: CEFEPIME 1,000 MG in SODIUM CHLORIDE 0.9% 100 ML IV SCH ×3 (02:58→14:45)
[2021-04-13] MEDS: ALBUTEROL/IPRATROPIUM 3 ML NEB RESP TX SCH ×4 (04:06→19:10)
[2021-04-13 04:24] LABS: Basophils # 0.1 10*3/uL (0.0-0.2); Basophils % 0.4 % (0.0-0.8); Eosinophils # 0.1 10*3/uL (0.0-0.87); Eosinophils % 0.2 % (0.00-10.9); Hematocrit 26.2 VOL% (42.0-52.0); Immature Granulocytes % 3.9 %; Immature Granulocytes Absolute 0.94 #; Lymphocytes # 2.1 10*3/uL (1.4-4.0); Lymphocytes % 8.5 % (21.2-54.2); Mean Corpuscular HGB Conc 34.4 GM/DL (32-36); Mean Corpuscular Volume 102.3 FL (87-102); Mean Platelet Volume 11.5 FL (9.6-12.0); Monocytes % 11.3 % (1.7-12.7); Neutrophils % 75.7 % (38.7-73.9); Platelet Count 184 T/CUMM (130-400); Red Blood Count 2.56 MC/CUMM (3.8-5.5); White Blood Count 24.2 T/CUMM (4-12)
[2021-04-13 05:06] LABS: Hypochromasia 1+; Lymphocytes 5 % (20-55); Macrocytosis Slight; Platelet Estimate Adequate; Segmented Neutrophils 87 % (50-85); Target Cells Slight; Total Cells Counted 100
[2021-04-13 05:07] LABS: Albumin 1.1 G/DL (3.4-5.0); Bilirubin,Total 1.4 MG/DL (0.20-1.00); Calcium 8.9 MG/DL (8.5-10.1); Osmolality,Calculated 277.7 MOS/KG (273-304); Potassium 4.3 MMOL/L (3.5-5.1); Total Protein 7.1 G/DL (6.4-8.2)
[2021-04-13 07:31] LABS: ABG Base Excess 1.2 MMOL/L (-2.5-2.5); ABG HCO3 25.5 MMOL/L (20-26); ABG PCO2 38.3 MM HG (35-48); ABG TCO2 23.3 MMOL/L (23-27)
[2021-04-13] MEDS ORDERED: VANCOMYCIN INJ 500 MG in SODIUM CHLORIDE 0.9% 100 ML IV SCH (08:00)
[2021-04-13] MEDS: MAGNESIUM OXIDE 400 MG TABLET PO SCH ×2 (09:10→22:02)
[2021-04-13] MEDS: ASPIRIN CHEW 81 MG TABLET PO SCH (09:10)
[2021-04-13] MEDS: FOLIC ACID 1 MG TABLET PO SCH (09:10)
[2021-04-13] MEDS: LACTATED RINGERS 1,000 ML IV SCH (09:10)
[2021-04-13] MEDS: PANTOPRAZOLE 40 MG VIAL IV SCH ×2 (09:11→22:02)
[2021-04-13] MEDS: THIAMINE 200 MG/2 ML VIAL IV SCH (09:11)
[2021-04-13] MEDS: [UNRECOGNIZED DRUG - OTHER] IRRIG SCH ×3 (09:12→22:03)
[2021-04-13] MEDS: VANCOMYCIN IRRIG SCH ×3 (09:12→22:03)
[2021-04-13] MEDS: MULTIVITAMIN LIQUID (CENTRUM) 60 ML BOTTLE NG SCH (11:04)
[2021-04-13] MEDS: cefTRIAXone 1,000 MG in SODIUM CHLORIDE 0.9% 100 ML IV SCH (16:25)
[2021-04-13] MEDS: DONEPEZIL 5 MG TABLET PO SCH (22:02)
[2021-04-13] MEDS: ENOXAPARIN 40 MG/0.4 ML SYRINGE SUBCUT SCH (22:02)
[2021-04-14] MEDS: METOCLOPRAMIDE 10 MG/2 ML VIAL IV SCH ×4 (00:15→17:12)
[2021-04-14] MEDS: VANCOMYCIN 50 MG/ML 60 ML/BOTTLE PO SCH ×4 (00:15→18:27)
[2021-04-14] MEDS: ALBUTEROL/IPRATROPIUM 3 ML NEB RESP TX SCH ×4 (00:56→19:19)
[2021-04-14] MEDS: VALPROIC ACID INJ 500 MG in SODIUM CHLORIDE 0.9% 100 ML IV SCH ×2 (02:00→08:37)
[2021-04-14] MEDS: [UNRECOGNIZED DRUG - OTHER] IRRIG SCH ×4 (04:00→20:20)
[2021-04-14] MEDS: VANCOMYCIN IRRIG SCH ×4 (04:00→20:20)
[2021-04-14 05:07] LABS: ABG Base Excess -0.1 MMOL/L (-2.5-2.5); ABG HCO3 24.3 MMOL/L (20-26); ABG Oxygen Saturation 97.6 % (95-100); ABG PCO2 38.1 MM HG (35-48); ABG PH 7.422 (7.35-7.45); ABG PO2 105.2 MM HG (80-95); ABG TCO2 25.4 MMOL/L (23-27)
[2021-04-14] MEDS: LACTATED RINGERS 1,000 ML IV SCH (05:31)
[2021-04-14 05:32] LABS: Basophils # 0.1 10*3/uL (0.0-0.2); Basophils % 0.3 % (0.0-0.8); Eosinophils # 0.1 10*3/uL (0.0-0.87); Eosinophils % 0.3 % (0.00-10.9); Hematocrit 24.6 VOL% (42.0-52.0); Hemoglobin 8.5 GM/DL (14.0-18.0); Immature Granulocytes % 2.3 %; Immature Granulocytes Absolute 0.66 #; Lymphocytes # 2.2 10*3/uL (1.4-4.0); Lymphocytes % 7.5 % (21.2-54.2); Mean Corpuscular HGB Conc 34.6 GM/DL (32-36); Mean Corpuscular Volume 103.4 FL (87-102); Mean Platelet Volume 11.2 FL (9.6-12.0); Monocytes % 11.2 % (1.7-12.7); NRBC # 0.02 10*3/uL; Neutrophils % 78.4 % (38.7-73.9); Platelet Count 252 T/CUMM (130-400); Red Blood Count 2.38 MC/CUMM (3.8-5.5); Red Cell Distribution Width 19.6 % (9.3-17.3)
[2021-04-14 05:53] LABS: Calcium 9.1 MG/DL (8.5-10.1); Osmolality,Calculated 275.7 MOS/KG (273-304); Potassium 4.1 MMOL/L (3.5-5.1)
[2021-04-14] MEDS: FOLIC ACID 1 MG TABLET PO SCH (08:35)
[2021-04-14] MEDS: MAGNESIUM OXIDE 400 MG TABLET PO SCH ×2 (08:35→20:26)
[2021-04-14] MEDS: ASPIRIN CHEW 81 MG TABLET PO SCH (08:35)
[2021-04-14] MEDS: THIAMINE 200 MG/2 ML VIAL IV SCH (08:35)
[2021-04-14] MEDS: MULTIVITAMIN LIQUID (CENTRUM) 60 ML BOTTLE NG SCH (08:36)
[2021-04-14] MEDS: PANTOPRAZOLE 40 MG VIAL IV SCH ×2 (08:36→20:24)
[2021-04-14 12:23] LABS: Lymphocytes 15 % (20-55); Platelet Estimate Normal; Polychromasia Slight; Segmented Neutrophils 83 % (50-85); Total Cells Counted 100
[2021-04-14 12:24] LABS: Macrocytosis 3+; Target Cells 2+
[2021-04-14] MEDS: cefTRIAXone 1,000 MG in SODIUM CHLORIDE 0.9% 100 ML IV SCH (15:32)
[2021-04-14] MEDS: VALPROIC ACID INJ 750 MG in SODIUM CHLORIDE 0.9% 100 ML IV SCH (17:12)
[2021-04-14] MEDS: ENOXAPARIN 40 MG/0.4 ML SYRINGE SUBCUT SCH (20:25)
[2021-04-14] MEDS: DONEPEZIL 5 MG TABLET PO SCH (20:26)
[2021-04-15] MEDS: VANCOMYCIN 50 MG/ML 60 ML/BOTTLE PO SCH ×4 (00:12→17:31)
[2021-04-15] MEDS: METOCLOPRAMIDE 10 MG/2 ML VIAL IV SCH ×4 (00:12→17:30)
[2021-04-15] MEDS: LACTATED RINGERS 1,000 ML IV SCH ×3 (00:14→22:15)
[2021-04-15] MEDS: ALBUTEROL/IPRATROPIUM 3 ML NEB RESP TX SCH ×4 (01:00→19:21)
[2021-04-15] MEDS: VALPROIC ACID INJ 750 MG in SODIUM CHLORIDE 0.9% 100 ML IV SCH ×3 (01:32→17:31)
[2021-04-15 04:08] LABS: ABG Base Excess 1.4 MMOL/L (-2.5-2.5); ABG HCO3 24.7 MMOL/L (20-26); ABG PCO2 35.4 MM HG (35-48); ABG PH 7.462 (7.35-7.45); ABG PO2 92.8 MM HG (80-95); ABG TCO2 25.8 MMOL/L (23-27)
[2021-04-15 04:10] LABS: ABG Oxygen Saturation 97.5 % (95-100)
[2021-04-15] MEDS: [UNRECOGNIZED DRUG - OTHER] IRRIG SCH ×4 (05:10→20:52)
[2021-04-15] MEDS: VANCOMYCIN IRRIG SCH ×4 (05:10→20:52)
[2021-04-15 05:52] LABS: Bilirubin,Total 1.3 MG/DL (0.20-1.00); Osmolality,Calculated 283.1 MOS/KG (273-304); Total Protein 7.2 G/DL (6.4-8.2)
[2021-04-15 06:47] LABS: Basophils # 0.1 10*3/uL (0.0-0.2); Basophils % 0.3 % (0.0-0.8); Eosinophils # 0.1 10*3/uL (0.0-0.87); Eosinophils % 0.2 % (0.00-10.9); Hematocrit 26.7 VOL% (42.0-52.0); Hemoglobin 8.9 GM/DL (14.0-18.0); Immature Granulocytes % 1.9 %; Immature Granulocytes Absolute 0.43 #; Lymphocytes # 2.5 10*3/uL (1.4-4.0); Mean Corpuscular HGB Conc 33.3 GM/DL (32-36); Mean Platelet Volume 10.9 FL (9.6-12.0); Monocytes % 12.1 % (1.7-12.7); NRBC # 0.02 10*3/uL; Neutrophils % 74.5 % (38.7-73.9); Platelet Count 321 T/CUMM (130-400); Red Blood Count 2.52 MC/CUMM (3.8-5.5)
[2021-04-15] MEDS: MULTIVITAMIN LIQUID (CENTRUM) 60 ML BOTTLE NG SCH (08:33)
[2021-04-15] MEDS: MAGNESIUM OXIDE 400 MG TABLET PO SCH ×2 (08:34→20:52)
[2021-04-15] MEDS: FOLIC ACID 1 MG TABLET PO SCH (08:34)
[2021-04-15] MEDS: ASPIRIN CHEW 81 MG TABLET PO SCH (08:34)
[2021-04-15] MEDS: THIAMINE 200 MG/2 ML VIAL IV SCH (08:34)
[2021-04-15] MEDS: PANTOPRAZOLE 40 MG VIAL IV SCH ×2 (08:35→20:52)
[2021-04-15 10:19] LABS: Band Neutrophils 1 % (0-10); Lymphocytes 9 % (20-55); Platelet Estimate Normal; Segmented Neutrophils 76 % (50-85); Total Cells Counted 100
[2021-04-15] MEDS: ALBUMIN 25% 12.5 GM/50 ML VIAL IV SCH ×2 (11:00→18:16)
[2021-04-15] MEDS: cefTRIAXone 2,000 MG in SODIUM CHLORIDE 0.9% 100 ML IV SCH (15:21)
[2021-04-15] MEDS: DONEPEZIL 5 MG TABLET PO SCH (20:52)
[2021-04-15] MEDS: ENOXAPARIN 40 MG/0.4 ML SYRINGE SUBCUT SCH (20:52)
[2021-04-16] MEDS: ALBUTEROL/IPRATROPIUM 3 ML NEB RESP TX SCH ×4 (00:18→19:33)
[2021-04-16] MEDS: METOCLOPRAMIDE 10 MG/2 ML VIAL IV SCH ×5 (00:34→23:37)
[2021-04-16] MEDS: VANCOMYCIN 50 MG/ML 60 ML/BOTTLE PO SCH ×5 (00:34→23:37)
[2021-04-16] MEDS: VALPROIC ACID INJ 750 MG in SODIUM CHLORIDE 0.9% 100 ML IV SCH ×3 (00:35→17:28)
[2021-04-16] MEDS: ALBUMIN 25% 12.5 GM/50 ML VIAL IV SCH ×3 (03:02→17:31)
[2021-04-16] MEDS: [UNRECOGNIZED DRUG - OTHER] IRRIG SCH ×5 (03:03→22:12)
[2021-04-16] MEDS: VANCOMYCIN IRRIG SCH ×5 (03:03→22:12)
[2021-04-16 04:30] LABS: ABG Base Excess 2.7 MMOL/L (-2.5-2.5); ABG HCO3 26.8 MMOL/L (20-26); ABG Oxygen Saturation 98.8 % (95-100); ABG PCO2 37.2 MM HG (35-48); ABG PH 7.461 (7.35-7.45); ABG TCO2 24.6 MMOL/L (23-27)
[2021-04-16 05:39] LABS: Basophils # 0.1 10*3/uL (0.0-0.2); Basophils % 0.3 % (0.0-0.8); Eosinophils % 0.2 % (0.00-10.9); Hematocrit 22.9 VOL% (42.0-52.0); Immature Granulocytes % 1.5 %; Lymphocytes # 2.3 10*3/uL (1.4-4.0); Lymphocytes % 11.7 % (21.2-54.2); Mean Corpuscular HGB Conc 34.9 GM/DL (32-36); Mean Platelet Volume 10.6 FL (9.6-12.0); Monocytes % 14.6 % (1.7-12.7); Neutrophils % 71.7 % (38.7-73.9); Platelet Count 361 T/CUMM (130-400); Red Blood Count 2.18 MC/CUMM (3.8-5.5); Red Cell Distribution Width 20.6 % (9.3-17.3); White Blood Count 19.8 T/CUMM (4-12)
[2021-04-16 05:44] LABS: Albumin 1.7 G/DL (3.4-5.0); Bilirubin,Total 1.4 MG/DL (0.20-1.00); Calcium 9.6 MG/DL (8.5-10.1); Osmolality,Calculated 282.3 MOS/KG (273-304); Potassium 3.8 MMOL/L (3.5-5.1); Total Protein 7.6 G/DL (6.4-8.2)
[2021-04-16] MEDS: MAGNESIUM OXIDE 400 MG TABLET PO SCH ×2 (09:15→21:50)
[2021-04-16] MEDS: FOLIC ACID 1 MG TABLET PO SCH (09:15)
[2021-04-16] MEDS: ASPIRIN CHEW 81 MG TABLET PO SCH (09:15)
[2021-04-16] MEDS: metroNIDAZOLE 500 MG TABLET PER TUBE SCH ×3 (09:15→21:50)
[2021-04-16] MEDS: MULTIVITAMIN LIQUID (CENTRUM) 60 ML BOTTLE NG SCH (09:16)
[2021-04-16] MEDS: PANTOPRAZOLE 40 MG VIAL IV SCH ×2 (09:17→22:07)
[2021-04-16] MEDS: THIAMINE 200 MG/2 ML VIAL IV SCH (09:17)
[2021-04-16] MEDS ORDERED: MAGNESIUM SULF RIDER 4 GM/100 ML PREMIX IV ONE (10:00)
[2021-04-16] MEDS: LACTATED RINGERS 1,000 ML IV SCH (14:30)
[2021-04-16] MEDS: cefTRIAXone 2,000 MG in SODIUM CHLORIDE 0.9% 100 ML IV SCH (15:23)
[2021-04-16] MEDS: DONEPEZIL 5 MG TABLET PO SCH (21:50)
[2021-04-16] MEDS: ENOXAPARIN 40 MG/0.4 ML SYRINGE SUBCUT SCH (21:51)
[2021-04-17] MEDS: ALBUTEROL/IPRATROPIUM 3 ML NEB RESP TX SCH ×4 (00:30→19:36)
[2021-04-17] MEDS: VALPROIC ACID INJ 750 MG in SODIUM CHLORIDE 0.9% 100 ML IV SCH ×2 (01:18→09:39)
[2021-04-17] MEDS: ALBUMIN 25% 12.5 GM/50 ML VIAL IV SCH ×3 (02:57→17:35)
[2021-04-17] MEDS: [UNRECOGNIZED DRUG - OTHER] IRRIG SCH ×4 (02:58→21:23)
[2021-04-17] MEDS: VANCOMYCIN IRRIG SCH ×4 (02:58→21:23)
[2021-04-17 04:51] LABS: ABG Base Excess 3.8 MMOL/L (-2.5-2.5); ABG HCO3 27.7 MMOL/L (20-26); ABG Oxygen Saturation 96.2 % (95-100); ABG PCO2 38.2 MM HG (35-48); ABG PH 7.467 (7.35-7.45); ABG PO2 82.7 MM HG (80-95); ABG TCO2 24.3 MMOL/L (23-27)
[2021-04-17 05:05] LABS: Basophils % 0.2 % (0.0-0.8); Eosinophils # 0.1 10*3/uL (0.0-0.87); Eosinophils % 0.4 % (0.00-10.9); Hematocrit 21.2 VOL% (42.0-52.0); Hemoglobin 7.1 GM/DL (14.0-18.0); Immature Granulocytes Absolute 0.17 #; Lymphocytes # 2.1 10*3/uL (1.4-4.0); Lymphocytes % 11.9 % (21.2-54.2); Mean Corpuscular HGB Conc 33.5 GM/DL (32-36); Mean Corpuscular Volume 107.6 FL (87-102); Mean Platelet Volume 10.8 FL (9.6-12.0); Monocytes % 15.1 % (1.7-12.7); Neutrophils % 71.4 % (38.7-73.9); Platelet Count 388 T/CUMM (130-400); Red Blood Count 1.97 MC/CUMM (3.8-5.5); Red Cell Distribution Width 21.1 % (9.3-17.3); White Blood Count 17.8 T/CUMM (4-12)
[2021-04-17 05:34] LABS: Calcium 9.6 MG/DL (8.5-10.1); Potassium 3.5 MMOL/L (3.5-5.1)
[2021-04-17] MEDS: METOCLOPRAMIDE 10 MG/2 ML VIAL IV SCH ×3 (06:11→17:35)
[2021-04-17] MEDS: VANCOMYCIN 50 MG/ML 60 ML/BOTTLE PO SCH ×3 (06:11→17:35)
[2021-04-17] MEDS ORDERED: POTASSIUM BICARB EFFERVESCENT 20 MEQ TAB.EFF PO ONE (08:00)
[2021-04-17] MEDS ORDERED: SODIUM CHLORIDE 0.9% 1,000 ML IV PRN (08:07)
[2021-04-17] MEDS: FUROSEMIDE 40 MG/4 ML VIAL IV SCH ×2 (08:57→15:16)
[2021-04-17] MEDS: MAGNESIUM OXIDE 400 MG TABLET PO SCH ×2 (09:00→21:22)
[2021-04-17] MEDS: FOLIC ACID 1 MG TABLET PO SCH (09:00)
[2021-04-17] MEDS ORDERED: MAGNESIUM SULF RIDER 4 GM/100 ML PREMIX IV ONE (09:00)
[2021-04-17] MEDS: metroNIDAZOLE 500 MG TABLET PER TUBE SCH ×3 (09:01→21:22)
[2021-04-17] MEDS: MULTIVITAMIN LIQUID (CENTRUM) 60 ML BOTTLE NG SCH (09:01)
[2021-04-17] MEDS: ASPIRIN CHEW 81 MG TABLET PO SCH (09:02)
[2021-04-17] MEDS: THIAMINE 200 MG/2 ML VIAL IV SCH (09:03)
[2021-04-17] MEDS: PANTOPRAZOLE 40 MG VIAL IV SCH ×2 (09:04→21:20)
[2021-04-17] MEDS: LACTATED RINGERS 1,000 ML IV SCH (09:44)
[2021-04-17] MEDS: cefTRIAXone 2,000 MG in SODIUM CHLORIDE 0.9% 100 ML IV SCH (15:15)
[2021-04-17] MEDS: ENOXAPARIN 40 MG/0.4 ML SYRINGE SUBCUT SCH (21:22)
[2021-04-17] MEDS: DONEPEZIL 5 MG TABLET PO SCH (21:22)
[2021-04-17] MEDS: DIVALPROEX 500 MG TABLET PO SCH (21:23)
[2021-04-18] MEDS: METOCLOPRAMIDE 10 MG/2 ML VIAL IV SCH ×3 (01:31→16:09)
[2021-04-18] MEDS: VANCOMYCIN 50 MG/ML 60 ML/BOTTLE PO SCH ×4 (01:32→18:32)
[2021-04-18] MEDS: ALBUTEROL/IPRATROPIUM 3 ML NEB RESP TX SCH ×4 (01:50→19:20)
[2021-04-18] MEDS: ALBUMIN 25% 12.5 GM/50 ML VIAL IV SCH (03:07)
[2021-04-18 03:56] LABS: ABG Base Excess 5.4 MMOL/L (-2.5-2.5); ABG HCO3 29.4 MMOL/L (20-26); ABG Oxygen Saturation 98.7 % (95-100); ABG PCO2 35.3 MM HG (35-48); ABG PH 7.515 (7.35-7.45); ABG TCO2 25.7 MMOL/L (23-27)
[2021-04-18] MEDS: VANCOMYCIN IRRIG SCH (04:25)
[2021-04-18] MEDS: [UNRECOGNIZED DRUG - OTHER] IRRIG SCH (04:25)
[2021-04-18 05:30] LABS: Basophils # 0.1 10*3/uL (0.0-0.2); Basophils % 0.4 % (0.0-0.8); Eosinophils # 0.1 10*3/uL (0.0-0.87); Eosinophils % 0.4 % (0.00-10.9); Hematocrit 28.5 VOL% (42.0-52.0); Immature Granulocytes % 0.9 %; Immature Granulocytes Absolute 0.16 #; Lymphocytes # 1.9 10*3/uL (1.4-4.0); Lymphocytes % 11.3 % (21.2-54.2); Mean Corpuscular HGB Conc 34.7 GM/DL (32-36); Mean Corpuscular Volume 97.6 FL (87-102); Mean Platelet Volume 10.2 FL (9.6-12.0); Monocytes % 13.5 % (1.7-12.7); Neutrophils % 73.5 % (38.7-73.9); Platelet Count 387 T/CUMM (130-400); Red Cell Distribution Width 22.7 % (9.3-17.3); White Blood Count 17.1 T/CUMM (4-12)
[2021-04-18 05:33] LABS: Red Blood Count 2.92 MC/CUMM (3.8-5.5)
[2021-04-18 05:34] LABS: Hemoglobin 9.9 GM/DL (14.0-18.0)
[2021-04-18 05:47] LABS: Hypochromasia 1+; Platelet Estimate Adequate
[2021-04-18] MEDS: LACTATED RINGERS 1,000 ML IV SCH (06:10)
[2021-04-18] MEDS: FOLIC ACID 1 MG TABLET PO SCH (08:18)
[2021-04-18] MEDS: ASPIRIN CHEW 81 MG TABLET PO SCH (08:18)
[2021-04-18] MEDS: THIAMINE 200 MG/2 ML VIAL IV SCH (08:18)
[2021-04-18] MEDS: MAGNESIUM OXIDE 400 MG TABLET PO SCH ×2 (08:18→20:38)
[2021-04-18] MEDS: FUROSEMIDE 40 MG/4 ML VIAL IV SCH ×2 (08:19→16:09)
[2021-04-18] MEDS: PANTOPRAZOLE 40 MG VIAL IV SCH ×2 (08:19→20:38)
[2021-04-18] MEDS: DIVALPROEX 500 MG TABLET PO SCH ×2 (09:32→20:37)
[2021-04-18] MEDS: METOPROLOL TARTRATE 25 MG TABLET PO SCH ×2 (09:32→20:37)
[2021-04-18] MEDS: MULTIVITAMIN LIQUID (CENTRUM) 60 ML BOTTLE NG SCH (09:33)
[2021-04-18] MEDS: metroNIDAZOLE 500 MG TABLET PER TUBE SCH (10:37)
[2021-04-18] MEDS: cefTRIAXone 1,000 MG in SODIUM CHLORIDE 0.9% 100 ML IV SCH (16:08)
[2021-04-18] MEDS: DONEPEZIL 5 MG TABLET PO SCH (20:37)
[2021-04-19] MEDS: METOCLOPRAMIDE 10 MG/2 ML VIAL IV SCH ×3 (00:09→15:17)
[2021-04-19] MEDS: VANCOMYCIN 50 MG/ML 60 ML/BOTTLE PO SCH ×4 (00:10→18:07)
[2021-04-19 04:09] LABS: Osmolality,Calculated 280.4 MOS/KG (273-304); Potassium 3.4 MMOL/L (3.5-5.1)
[2021-04-19 04:38] LABS: ABG Base Excess 6.8 MMOL/L (-2.5-2.5); ABG HCO3 30.6 MMOL/L (20-26); ABG Oxygen Saturation 97.4 % (95-100); ABG PCO2 42.1 MM HG (35-48); ABG PH 7.477 (7.35-7.45); ABG PO2 96.3 MM HG (80-95); ABG TCO2 26.5 MMOL/L (23-27)
[2021-04-19] MEDS: POTASSIUM BICARB EFFERVESCENT 20 MEQ TAB.EFF PO PRN ×3 (06:23→11:08)
[2021-04-19] MEDS: ALBUTEROL/IPRATROPIUM 3 ML NEB RESP TX SCH ×4 (07:27→19:28)
[2021-04-19] MEDS: DIVALPROEX 500 MG TABLET PO SCH ×2 (08:40→21:34)
[2021-04-19] MEDS: FOLIC ACID 1 MG TABLET PO SCH (08:40)
[2021-04-19] MEDS: ASPIRIN CHEW 81 MG TABLET PO SCH (08:40)
[2021-04-19] MEDS: METOPROLOL TARTRATE 25 MG TABLET PO SCH ×2 (08:40→21:34)
[2021-04-19] MEDS: PANTOPRAZOLE 40 MG VIAL IV SCH ×2 (08:41→21:34)
[2021-04-19] MEDS: THIAMINE 200 MG/2 ML VIAL IV SCH (08:41)
[2021-04-19] MEDS: FUROSEMIDE 40 MG/4 ML VIAL IV SCH ×2 (08:41→15:16)
[2021-04-19] MEDS: MULTIVITAMIN LIQUID (CENTRUM) 60 ML BOTTLE NG SCH (08:42)
[2021-04-19] MEDS: MAGNESIUM OXIDE 400 MG TABLET PO SCH ×2 (08:52→21:34)
[2021-04-19] MEDS ORDERED: MAGNESIUM SULF RIDER 4 GM/100 ML PREMIX IV ONE (09:30)
[2021-04-19] MEDS: cefTRIAXone 1,000 MG in SODIUM CHLORIDE 0.9% 100 ML IV SCH (15:17)
[2021-04-19] MEDS: DONEPEZIL 5 MG TABLET PO SCH (21:33)
[2021-04-20] MEDS: VANCOMYCIN 50 MG/ML 60 ML/BOTTLE PO SCH ×4 (00:21→18:19)
[2021-04-20] MEDS: METOCLOPRAMIDE 10 MG/2 ML VIAL IV SCH ×3 (00:21→16:24)
[2021-04-20] MEDS: ALBUTEROL/IPRATROPIUM 3 ML NEB RESP TX SCH ×5 (00:50→22:55)
[2021-04-20 04:04] LABS: Allen Test Positive; Pt O2 Delivery Device Ventilator
[2021-04-20 04:06] LABS: ABG Base Excess 8.8 MMOL/L (-2.5-2.5); ABG HCO3 32.6 MMOL/L (20-26); ABG Oxygen Saturation 98.4 % (95-100); ABG PCO2 40.5 MM HG (35-48); ABG PH 7.514 (7.35-7.45); ABG TCO2 29.5 MMOL/L (23-27)
[2021-04-20 04:15] LABS: Basophils # 0.1 10*3/uL (0.0-0.2); Basophils % 0.7 % (0.0-0.8); Eosinophils # 0.1 10*3/uL (0.0-0.87); Eosinophils % 0.4 % (0.00-10.9); Hematocrit 28.9 VOL% (42.0-52.0); Hemoglobin 9.8 GM/DL (14.0-18.0); Immature Granulocytes % 0.8 %; Immature Granulocytes Absolute 0.16 #; Lymphocytes # 2.9 10*3/uL (1.4-4.0); Lymphocytes % 14.8 % (21.2-54.2); Mean Corpuscular HGB Conc 33.9 GM/DL (32-36); Mean Corpuscular Volume 99.3 FL (87-102); Mean Platelet Volume 10.5 FL (9.6-12.0); Monocytes % 19.3 % (1.7-12.7); Platelet Count 445 T/CUMM (130-400); Red Blood Count 2.91 MC/CUMM (3.8-5.5); Red Cell Distribution Width 22.1 % (9.3-17.3); White Blood Count 19.6 T/CUMM (4-12)
[2021-04-20 04:37] LABS: Band Neutrophils 6 % (0-10); Hypochromasia 1+; Lymphocytes 10 % (20-55); Segmented Neutrophils 63 % (50-85); Target Cells Few; Total Cells Counted 100
[2021-04-20 04:38] LABS: Anisocytosis 1+; Macrocytosis 1+; Platelet Estimate Increased
[2021-04-20 04:42] LABS: Albumin 1.7 G/DL (3.4-5.0); Bilirubin,Total 1.9 MG/DL (0.20-1.00); Calcium 9.9 MG/DL (8.5-10.1); Osmolality,Calculated 283.4 MOS/KG (273-304); Potassium 3.9 MMOL/L (3.5-5.1); Total Protein 8.1 G/DL (6.4-8.2)
[2021-04-20] MEDS ORDERED: ETOMIDATE 40 MG/20 ML VIAL IV ONE (08:31)
[2021-04-20] MEDS: FUROSEMIDE 40 MG/4 ML VIAL IV SCH ×2 (10:01→16:22)
[2021-04-20] MEDS: MAGNESIUM OXIDE 400 MG TABLET PO SCH ×2 (10:03→21:09)
[2021-04-20] MEDS: DIVALPROEX 500 MG TABLET PO SCH ×2 (10:04→21:09)
[2021-04-20] MEDS: ASPIRIN CHEW 81 MG TABLET PO SCH (10:04)
[2021-04-20] MEDS: MULTIVITAMIN LIQUID (CENTRUM) 60 ML BOTTLE NG SCH (10:04)
[2021-04-20] MEDS: THIAMINE 200 MG/2 ML VIAL IV SCH (10:05)
[2021-04-20] MEDS: PANTOPRAZOLE 40 MG VIAL IV SCH ×2 (10:07→21:09)
[2021-04-20] MEDS: FOLIC ACID 1 MG TABLET PO SCH (10:07)
[2021-04-20] MEDS: METOPROLOL TARTRATE 25 MG TABLET PO SCH ×2 (10:13→21:09)
[2021-04-20] MEDS: DONEPEZIL 5 MG TABLET PO SCH (21:09)
[2021-04-21] MEDS: METOCLOPRAMIDE 10 MG/2 ML VIAL IV SCH ×4 (00:28→23:51)
[2021-04-21] MEDS: VANCOMYCIN 50 MG/ML 60 ML/BOTTLE PO SCH ×4 (00:29→20:22)
[2021-04-21 03:47] LABS: ABG Base Excess 8.7 MMOL/L (-2.5-2.5); ABG HCO3 32.9 MMOL/L (20-26); ABG PH 7.492 (7.35-7.45); ABG PO2 85.9 MM HG (80-95); ABG TCO2 34.3 MMOL/L (23-27)
[2021-04-21 04:40] LABS: Basophils # 0.1 10*3/uL (0.0-0.2); Basophils % 0.4 % (0.0-0.8); Eosinophils # 0.1 10*3/uL (0.0-0.87); Eosinophils % 0.6 % (0.00-10.9); Hematocrit 29.1 VOL% (42.0-52.0); Hemoglobin 9.6 GM/DL (14.0-18.0); Immature Granulocytes % 0.6 %; Immature Granulocytes Absolute 0.09 #; Lymphocytes # 2.1 10*3/uL (1.4-4.0); Lymphocytes % 13.7 % (21.2-54.2); Mean Corpuscular Volume 103.9 FL (87-102); Mean Platelet Volume 10.2 FL (9.6-12.0); Monocytes % 14.6 % (1.7-12.7); Neutrophils % 70.1 % (38.7-73.9); Platelet Count 395 T/CUMM (130-400); Red Cell Distribution Width 22.2 % (9.3-17.3); White Blood Count 15.6 T/CUMM (4-12)
[2021-04-21 05:02] LABS: Calcium 9.5 MG/DL (8.5-10.1); Potassium 3.2 MMOL/L (3.5-5.1)
[2021-04-21] MEDS: ALBUTEROL/IPRATROPIUM 3 ML NEB RESP TX SCH ×3 (06:57→19:35)
[2021-04-21] MEDS: FUROSEMIDE 40 MG/4 ML VIAL IV SCH ×2 (07:55→16:40)
[2021-04-21] MEDS: POTASSIUM BICARB EFFERVESCENT 20 MEQ TAB.EFF PO PRN (08:00)
[2021-04-21] MEDS ORDERED: POTASSIUM BICARB EFFERVESCENT 20 MEQ TAB.EFF PER TUBE PRN (10:19)
[2021-04-21] MEDS: ASPIRIN CHEW 81 MG TABLET PO SCH (10:34)
[2021-04-21] MEDS: DIVALPROEX 500 MG TABLET PO SCH ×2 (10:34→20:21)
[2021-04-21] MEDS: MAGNESIUM OXIDE 400 MG TABLET PO SCH ×2 (10:34→20:21)
[2021-04-21] MEDS: FOLIC ACID 1 MG TABLET PO SCH (10:34)
[2021-04-21] MEDS: METOPROLOL TARTRATE 25 MG TABLET PO SCH ×2 (10:37→20:20)
[2021-04-21] MEDS: MULTIVITAMIN LIQUID (CENTRUM) 60 ML BOTTLE NG SCH (10:40)
[2021-04-21] MEDS: PANTOPRAZOLE 40 MG VIAL IV SCH ×2 (10:42→20:20)
[2021-04-21] MEDS: THIAMINE 200 MG/2 ML VIAL IV SCH (10:44)
[2021-04-21] MEDS: cefTRIAXone 1,000 MG in SODIUM CHLORIDE 0.9% 100 ML IV SCH (12:17)
[2021-04-21] MEDS: POTASSIUM CHLORIDE 20 MEQ PACK PER TUBE PRN ×2 (16:36→20:21)
[2021-04-21] MEDS: DONEPEZIL 5 MG TABLET PO SCH (20:21)
[2021-04-22] MEDS: ALBUTEROL/IPRATROPIUM 3 ML NEB RESP TX SCH ×4 (01:20→18:20)
[2021-04-22 03:21] LABS: Basophils # 0.1 10*3/uL (0.0-0.2); Basophils % 0.6 % (0.0-0.8); Eosinophils # 0.1 10*3/uL (0.0-0.87); Eosinophils % 0.9 % (0.00-10.9); Hematocrit 28.2 VOL% (42.0-52.0); Immature Granulocytes % 0.4 %; Immature Granulocytes Absolute 0.05 #; Lymphocytes # 2.6 10*3/uL (1.4-4.0); Lymphocytes % 20.8 % (21.2-54.2); Mean Corpuscular HGB Conc 31.9 GM/DL (32-36); Mean Corpuscular Volume 105.2 FL (87-102); Mean Platelet Volume 10.3 FL (9.6-12.0); Monocytes % 16.5 % (1.7-12.7); Neutrophils % 60.8 % (38.7-73.9); Platelet Count 366 T/CUMM (130-400); Red Blood Count 2.68 MC/CUMM (3.8-5.5); White Blood Count 12.4 T/CUMM (4-12)
[2021-04-22 03:23] LABS: ABG Base Excess 9.6 MMOL/L (-2.5-2.5); ABG HCO3 33.3 MMOL/L (20-26); ABG Oxygen Saturation 98.1 % (95-100); ABG PH 7.496 (7.35-7.45); ABG TCO2 31.1 MMOL/L (23-27)
[2021-04-22 03:42] LABS: Albumin 1.3 G/DL (3.4-5.0); Calcium 9.3 MG/DL (8.5-10.1); Osmolality,Calculated 296.6 MOS/KG (273-304); Potassium 3.6 MMOL/L (3.5-5.1); Total Protein 7.6 G/DL (6.4-8.2)
[2021-04-22 03:44] LABS: Band Neutrophils 1 % (0-10); Hypochromasia 1+; Lymphocytes 23 % (20-55); Platelet Estimate Adequate; Segmented Neutrophils 64 % (50-85); Total Cells Counted 100
[2021-04-22] MEDS ORDERED: MAGNESIUM SULF RIDER 4 GM/100 ML PREMIX IV PRN (08:34)
[2021-04-22] MEDS ORDERED: MAGNESIUM SULF RIDER 2 GM/50 ML PREMIX IV ONE (09:08)
[2021-04-22] MEDS: FUROSEMIDE 40 MG/4 ML VIAL IV SCH ×2 (09:41→16:16)
[2021-04-22] MEDS: METOCLOPRAMIDE 10 MG/2 ML VIAL IV SCH ×2 (09:43→16:20)
[2021-04-22] MEDS: METOPROLOL TARTRATE 25 MG TABLET PO SCH ×2 (09:45→20:56)
[2021-04-22] MEDS: ASPIRIN CHEW 81 MG TABLET PO SCH (09:45)
[2021-04-22] MEDS: DIVALPROEX 500 MG TABLET PO SCH ×2 (09:46→20:56)
[2021-04-22] MEDS: FOLIC ACID 1 MG TABLET PO SCH (09:47)
[2021-04-22] MEDS: POTASSIUM CHLORIDE 20 MEQ PACK PER TUBE PRN ×2 (09:47→12:05)
[2021-04-22] MEDS: MAGNESIUM OXIDE 400 MG TABLET PO SCH ×2 (09:48→20:56)
[2021-04-22] MEDS: MULTIVITAMIN LIQUID (CENTRUM) 60 ML BOTTLE NG SCH (09:48)
[2021-04-22] MEDS: PANTOPRAZOLE 40 MG VIAL IV SCH ×2 (09:49→20:56)
[2021-04-22] MEDS: VANCOMYCIN 50 MG/ML 60 ML/BOTTLE PO SCH ×2 (09:53→20:56)
[2021-04-22] MEDS: THIAMINE 200 MG/2 ML VIAL IV SCH (09:54)
[2021-04-22] MEDS: cefTRIAXone 1,000 MG in SODIUM CHLORIDE 0.9% 100 ML IV SCH (09:55)
[2021-04-22] MEDS: DONEPEZIL 5 MG TABLET PO SCH (20:56)
[2021-04-23] MEDS: METOCLOPRAMIDE 10 MG/2 ML VIAL IV SCH ×3 (00:17→16:10)
[2021-04-23] MEDS: ALBUTEROL/IPRATROPIUM 3 ML NEB RESP TX SCH ×4 (00:58→19:04)
[2021-04-23 04:16] LABS: Basophils # 0.1 10*3/uL (0.0-0.2); Basophils % 0.6 % (0.0-0.8); Eosinophils # 0.1 10*3/uL (0.0-0.87); Hemoglobin 8.8 GM/DL (14.0-18.0); Immature Granulocytes % 0.6 %; Immature Granulocytes Absolute 0.07 #; Lymphocytes # 2.5 10*3/uL (1.4-4.0); Mean Corpuscular HGB Conc 31.4 GM/DL (32-36); Mean Corpuscular Volume 105.3 FL (87-102); Mean Platelet Volume 10.4 FL (9.6-12.0); Monocytes % 15.2 % (1.7-12.7); Neutrophils % 61.6 % (38.7-73.9); Platelet Count 359 T/CUMM (130-400); Red Blood Count 2.66 MC/CUMM (3.8-5.5); Red Cell Distribution Width 21.8 % (9.3-17.3); White Blood Count 11.7 T/CUMM (4-12)
[2021-04-23 04:18] LABS: ABG Base Excess 9.8 MMOL/L (-2.5-2.5); ABG HCO3 33.6 MMOL/L (20-26); ABG Oxygen Saturation 96.2 % (95-100); ABG PCO2 42.3 MM HG (35-48); ABG PH 7.518 (7.35-7.45); ABG PO2 87.2 MM HG (80-95); ABG TCO2 34.9 MMOL/L (23-27)
[2021-04-23 04:38] LABS: Albumin 1.3 G/DL (3.4-5.0); Bilirubin,Total 1.3 MG/DL (0.20-1.00); Calcium 8.6 MG/DL (8.5-10.1); Osmolality,Calculated 292.6 MOS/KG (273-304); Potassium 3.6 MMOL/L (3.5-5.1); Total Protein 7.9 G/DL (6.4-8.2)
[2021-04-23 04:44] LABS: Hypochromasia 1+; Lymphocytes 20 % (20-55); Segmented Neutrophils 70 % (50-85); Total Cells Counted 100
[2021-04-23 04:45] LABS: Macrocytosis 1+; Platelet Estimate Normal
[2021-04-23] MEDS: MAGNESIUM SULF RIDER 2 GM/50 ML PREMIX IV PRN (06:11)
[2021-04-23] MEDS: FUROSEMIDE 40 MG/4 ML VIAL IV SCH (08:18)
[2021-04-23] MEDS: THIAMINE 200 MG/2 ML VIAL IV SCH (08:18)
[2021-04-23] MEDS: PANTOPRAZOLE 40 MG VIAL IV SCH (08:19)
[2021-04-23] MEDS ORDERED: LIDOCAINE 2% 5 ML VIAL ONE (10:04)
[2021-04-23] MEDS ORDERED: KETAMINE 500 MG/10 ML VIAL ONE (10:04)
[2021-04-23] MEDS ORDERED: ROCURONIUM 50 MG/5 ML VIAL IV ONE (10:04)
[2021-04-23] MEDS ORDERED: MIDAZOLAM 10 MG/2 ML VIAL ONE (10:07)
[2021-04-23] MEDS ORDERED: BUPIVACAINE MPF 0.25% 30 ML VIAL ONE (10:09)
[2021-04-23] MEDS ORDERED: PHENYLEPHRINE 1 MG/10 ML SYRINGE IV ONE (10:21)
[2021-04-23] MEDS ORDERED: fentaNYL 100 MCG/2 ML VIAL ONE (11:14)
[2021-04-23] MEDS: cefTRIAXone 1,000 MG in SODIUM CHLORIDE 0.9% 100 ML IV SCH (12:25)
[2021-04-23] MEDS: MULTIVITAMIN LIQUID (CENTRUM) 60 ML BOTTLE NG SCH (12:27)
[2021-04-23] MEDS: DIVALPROEX 500 MG TABLET PO SCH ×2 (12:27→21:17)
[2021-04-23] MEDS: ASPIRIN CHEW 81 MG TABLET PO SCH (12:27)
[2021-04-23] MEDS: MAGNESIUM OXIDE 400 MG TABLET PO SCH ×2 (12:28→21:17)
[2021-04-23] MEDS: FOLIC ACID 1 MG TABLET PO SCH (12:28)
[2021-04-23] MEDS: METOPROLOL TARTRATE 25 MG TABLET PO SCH (12:28)
[2021-04-23] MEDS: VANCOMYCIN 50 MG/ML 60 ML/BOTTLE PO SCH ×2 (12:28→22:05)
[2021-04-23] MEDS: METOCLOPRAMIDE 10 MG/10 ML UDCUP PO SCH ×2 (16:14→21:17)
[2021-04-23] MEDS: OMEPRAZOLE ODT 20 MG TABLET PER TUBE SCH (21:17)
[2021-04-23] MEDS: METOPROLOL TARTRATE 50 MG TABLET PO SCH (21:17)
[2021-04-24] MEDS: ALBUTEROL/IPRATROPIUM 3 ML NEB RESP TX SCH ×4 (01:05→19:43)
[2021-04-24 03:51] LABS: Basophils % 0.3 % (0.0-0.8); Eosinophils # 0.1 10*3/uL (0.0-0.87); Eosinophils % 0.8 % (0.00-10.9); Hematocrit 29.1 VOL% (42.0-52.0); Hemoglobin 9.3 GM/DL (14.0-18.0); Immature Granulocytes % 0.4 %; Immature Granulocytes Absolute 0.05 #; Lymphocytes # 1.9 10*3/uL (1.4-4.0); Lymphocytes % 14.6 % (21.2-54.2); Mean Corpuscular Volume 104.7 FL (87-102); Mean Platelet Volume 10.4 FL (9.6-12.0); Monocytes % 12.2 % (1.7-12.7); Neutrophils % 71.7 % (38.7-73.9); Platelet Count 346 T/CUMM (130-400); Red Blood Count 2.78 MC/CUMM (3.8-5.5); Red Cell Distribution Width 21.8 % (9.3-17.3)
[2021-04-24 04:11] LABS: Hypochromasia 1+
[2021-04-24 04:12] LABS: Anisocytosis 1+; Microcytosis 1+; Platelet Estimate Normal; Target Cells Slight
[2021-04-24 04:14] LABS: Albumin 1.3 G/DL (3.4-5.0); Calcium 8.7 MG/DL (8.5-10.1); Osmolality,Calculated 290.8 MOS/KG (273-304); Potassium 3.5 MMOL/L (3.5-5.1); Total Protein 8.5 G/DL (6.4-8.2)
[2021-04-24 04:38] LABS: Allen Test Positive; Pt O2 Delivery Device Ventilator
[2021-04-24 04:39] LABS: ABG Base Excess 7.7 MMOL/L (-2.5-2.5); ABG HCO3 30.4 MMOL/L (20-26); ABG Oxygen Saturation 96.8 % (95-100); ABG PCO2 35.9 MM HG (35-48); ABG PH 7.546 (7.35-7.45); ABG PO2 89.7 MM HG (80-95); ABG TCO2 31.5 MMOL/L (23-27)
[2021-04-24] MEDS: MAGNESIUM SULF RIDER 2 GM/50 ML PREMIX IV PRN (05:47)
[2021-04-24] MEDS: POTASSIUM CHLORIDE 20 MEQ PACK PER TUBE PRN (05:47)
[2021-04-24] MEDS: METOCLOPRAMIDE 10 MG/10 ML UDCUP PO SCH ×4 (08:30→21:34)
[2021-04-24] MEDS: MULTIVITAMIN LIQUID (CENTRUM) 60 ML BOTTLE NG SCH (08:31)
[2021-04-24] MEDS: OMEPRAZOLE ODT 20 MG TABLET PER TUBE SCH ×2 (08:31→21:34)
[2021-04-24] MEDS: THIAMINE 200 MG/2 ML VIAL IV SCH (08:31)
[2021-04-24] MEDS: VANCOMYCIN 50 MG/ML 60 ML/BOTTLE PO SCH (08:31)
[2021-04-24] MEDS: DIVALPROEX 500 MG TABLET PO SCH ×2 (08:31→21:34)
[2021-04-24] MEDS: FOLIC ACID 1 MG TABLET PO SCH (08:31)
[2021-04-24] MEDS: METOPROLOL TARTRATE 50 MG TABLET PO SCH ×2 (08:31→21:34)
[2021-04-24] MEDS: MAGNESIUM OXIDE 400 MG TABLET PO SCH ×2 (08:31→21:34)
[2021-04-24] MEDS: ASPIRIN CHEW 81 MG TABLET PO SCH (08:31)
[2021-04-24] MEDS: cefTRIAXone 1,000 MG in SODIUM CHLORIDE 0.9% 100 ML IV SCH (09:01)
[2021-04-24] MEDS ORDERED: FUROSEMIDE 40 MG/4 ML VIAL IV ONE (15:49)
[2021-04-24] MEDS: ENOXAPARIN 40 MG/0.4 ML SYRINGE SUBCUT SCH (21:34)
[2021-04-25] MEDS: ALBUTEROL/IPRATROPIUM 3 ML NEB RESP TX SCH ×4 (01:05→18:05)
[2021-04-25 04:09] LABS: ABG Base Excess 8.2 MMOL/L (-2.5-2.5); ABG HCO3 31.9 MMOL/L (20-26); ABG Oxygen Saturation 97.2 % (95-100); ABG PCO2 34.1 MM HG (35-48); ABG PH 7.563 (7.35-7.45); ABG PO2 85.6 MM HG (80-95); ABG TCO2 28.1 MMOL/L (23-27); Allen Test Positive; Pt O2 Delivery Device Ventilator
[2021-04-25 05:38] LABS: Basophils # 0.1 10*3/uL (0.0-0.2); Basophils % 0.5 % (0.0-0.8); Eosinophils # 0.1 10*3/uL (0.0-0.87); Eosinophils % 0.9 % (0.00-10.9); Hematocrit 27.8 VOL% (42.0-52.0); Hemoglobin 9.1 GM/DL (14.0-18.0); Immature Granulocytes % 0.5 %; Immature Granulocytes Absolute 0.06 #; Lymphocytes # 3.1 10*3/uL (1.4-4.0); Mean Corpuscular HGB Conc 32.7 GM/DL (32-36); Mean Platelet Volume 10.8 FL (9.6-12.0); NRBC # 0.02 10*3/uL; Neutrophils % 62.1 % (38.7-73.9); Platelet Count 315 T/CUMM (130-400); Red Cell Distribution Width 22.1 % (9.3-17.3); White Blood Count 13.2 T/CUMM (4-12)
[2021-04-25 05:58] LABS: Calcium 8.8 MG/DL (8.5-10.1); Osmolality,Calculated 288.8 MOS/KG (273-304); Potassium 3.5 MMOL/L (3.5-5.1)
[2021-04-25 06:00] LABS: Lymphocytes 21 % (20-55); Platelet Estimate Normal; Segmented Neutrophils 67 % (50-85); Total Cells Counted 100
[2021-04-25 06:01] LABS: Hypochromasia Slight
[2021-04-25] MEDS: OMEPRAZOLE ODT 20 MG TABLET PER TUBE SCH ×2 (09:33→21:10)
[2021-04-25] MEDS: METOPROLOL TARTRATE 50 MG TABLET PO SCH ×2 (09:33→21:10)
[2021-04-25] MEDS: FOLIC ACID 1 MG TABLET PO SCH (09:33)
[2021-04-25] MEDS: MAGNESIUM OXIDE 400 MG TABLET PO SCH ×2 (09:33→21:10)
[2021-04-25] MEDS: ASPIRIN CHEW 81 MG TABLET PO SCH (09:34)
[2021-04-25] MEDS: POTASSIUM CHLORIDE 20 MEQ PACK PER TUBE PRN ×2 (09:34→11:51)
[2021-04-25] MEDS: METOCLOPRAMIDE 10 MG/10 ML UDCUP PO SCH ×4 (09:34→21:10)
[2021-04-25] MEDS: MULTIVITAMIN LIQUID (CENTRUM) 60 ML BOTTLE NG SCH (09:34)
[2021-04-25] MEDS: DIVALPROEX 500 MG TABLET PO SCH ×2 (09:34→21:10)
[2021-04-25] MEDS: THIAMINE 200 MG/2 ML VIAL IV SCH (09:34)
[2021-04-25] MEDS: MAGNESIUM SULF RIDER 2 GM/50 ML PREMIX IV PRN (09:43)
[2021-04-25] MEDS ORDERED: SODIUM CHLORIDE 0.9% 1,000 ML IV SCH (13:00)
[2021-04-25] MEDS: ENOXAPARIN 40 MG/0.4 ML SYRINGE SUBCUT SCH (21:10)
[2021-04-25] MEDS: ACETAMINOPHEN 500 MG TABLET PER TUBE PRN (23:59)
[2021-04-26] MEDS: ALBUTEROL/IPRATROPIUM 3 ML NEB RESP TX SCH ×4 (02:48→20:38)
[2021-04-26 04:00] LABS: Basophils # 0.1 10*3/uL (0.0-0.2); Basophils % 0.5 % (0.0-0.8); Eosinophils # 0.2 10*3/uL (0.0-0.87); Eosinophils % 1.5 % (0.00-10.9); Hematocrit 25.5 VOL% (42.0-52.0); Hemoglobin 8.1 GM/DL (14.0-18.0); Immature Granulocytes % 0.4 %; Immature Granulocytes Absolute 0.05 #; Lymphocytes # 3.6 10*3/uL (1.4-4.0); Lymphocytes % 27.6 % (21.2-54.2); Mean Corpuscular HGB Conc 31.8 GM/DL (32-36); Mean Corpuscular Volume 104.5 FL (87-102); Mean Platelet Volume 10.4 FL (9.6-12.0); Monocytes % 16.4 % (1.7-12.7); NRBC # 0.02 10*3/uL; Neutrophils % 53.6 % (38.7-73.9); Platelet Count 289 T/CUMM (130-400); Red Blood Count 2.44 MC/CUMM (3.8-5.5); Red Cell Distribution Width 22.2 % (9.3-17.3); White Blood Count 13.1 T/CUMM (4-12)
[2021-04-26 04:18] LABS: Calcium 8.3 MG/DL (8.5-10.1); Osmolality,Calculated 285.1 MOS/KG (273-304); Potassium 4.1 MMOL/L (3.5-5.1)
[2021-04-26 04:22] LABS: Anisocytosis 1+; Atypical Lymphocytes Few; Band Neutrophils 1 % (0-10); Eosinophils 1 % (0-10); Hypochromasia 1+; Lymphocytes 21 % (20-55); Microcytosis 1+; Myelocytes 1 %; Segmented Neutrophils 59 % (50-85); Total Cells Counted 100
[2021-04-26 05:38] LABS: ABG Base Excess 4.2 MMOL/L (-2.5-2.5); ABG HCO3 26.5 MMOL/L (20-26); ABG Oxygen Saturation 97.1 % (95-100); ABG PO2 90.9 MM HG (80-95); ABG TCO2 27.5 MMOL/L (23-27)
[2021-04-26] MEDS: ACETAMINOPHEN 500 MG TABLET PER TUBE PRN (05:59)
[2021-04-26] MEDS: METOCLOPRAMIDE 10 MG/10 ML UDCUP PO SCH ×4 (06:32→21:11)
[2021-04-26] MEDS: OMEPRAZOLE ODT 20 MG TABLET PER TUBE SCH ×2 (08:53→21:11)
[2021-04-26] MEDS: THIAMINE 200 MG/2 ML VIAL IV SCH (08:53)
[2021-04-26] MEDS: LACTULOSE 20 GM/30 ML UDCUP PO SCH ×2 (08:53→21:10)
[2021-04-26] MEDS: DIVALPROEX 500 MG TABLET PO SCH ×2 (08:54→21:10)
[2021-04-26] MEDS: ASPIRIN CHEW 81 MG TABLET PO SCH (08:54)
[2021-04-26] MEDS: MAGNESIUM OXIDE 400 MG TABLET PO SCH ×2 (08:54→21:11)
[2021-04-26] MEDS: FOLIC ACID 1 MG TABLET PO SCH (08:54)
[2021-04-26] MEDS: METOPROLOL TARTRATE 50 MG TABLET PO SCH ×2 (08:54→21:10)
[2021-04-26] MEDS: MAGNESIUM SULF RIDER 2 GM/50 ML PREMIX IV PRN (08:54)
[2021-04-26 08:59] LABS: Bilirubin,Urine Negative (Negative); Blood, Urine Moderate mg/dL (Negative); Glucose,Urine (UA) Negative (Negative); Hyaline Casts,Urine 15 /LPF (0-3); Ketones,Urine Negative (Negative); Mucus,Urine Occasional /LPF (Occasional); Nitrite,Urine Negative (Negative); Protein,Urine 30 MG/DL; RBC,Urine 48 /HPF (0-4); Urine Appearance CLOUDY (Clear); Urine Color Amber (Yellow); Urine Specific Gravity 1.016 (1.001-1.035); Urine Urobilinogen < 2.0 EU/DL (0.2-1.0)
[2021-04-26] MEDS: MULTIVITAMIN LIQUID (CENTRUM) 60 ML BOTTLE NG SCH (11:12)
[2021-04-26] MEDS: cefTRIAXone 1,000 MG in SODIUM CHLORIDE 0.9% 100 ML IV SCH (11:13)
[2021-04-26] MEDS: SODIUM CHLORIDE 0.9% 1,000 ML IV SCH (12:37)
[2021-04-26 18:34] VITALS: BP 113/66
[2021-04-26] MEDS ORDERED: QUEtiapine 25 MG TABLET PO SCH (21:00)
[2021-04-26] MEDS: ENOXAPARIN 40 MG/0.4 ML SYRINGE SUBCUT SCH (21:11)
[2021-04-27] MEDS: ALBUTEROL/IPRATROPIUM 3 ML NEB RESP TX SCH ×2 (00:29→07:20)
[2021-04-27 03:26] LABS: ABG Base Excess 2.5 MMOL/L (-2.5-2.5); ABG HCO3 25.1 MMOL/L (20-26); ABG Oxygen Saturation 98.1 % (95-100); ABG PCO2 31.2 MM HG (35-48); ABG PH 7.524 (7.35-7.45); ABG PO2 110.5 MM HG (80-95); ABG TCO2 26.1 MMOL/L (23-27)
[2021-04-27 03:56] LABS: Basophils # 0.1 10*3/uL (0.0-0.2); Basophils % 0.6 % (0.0-0.8); Eosinophils # 0.2 10*3/uL (0.0-0.87); Eosinophils % 1.5 % (0.00-10.9); Hematocrit 25.2 VOL% (42.0-52.0); Hemoglobin 8.1 GM/DL (14.0-18.0); Immature Granulocytes % 0.3 %; Immature Granulocytes Absolute 0.04 #; Lymphocytes # 2.4 10*3/uL (1.4-4.0); Lymphocytes % 19.5 % (21.2-54.2); Mean Corpuscular HGB Conc 32.1 GM/DL (32-36); Mean Corpuscular Volume 104.1 FL (87-102); Mean Platelet Volume 10.5 FL (9.6-12.0); Monocytes % 15.9 % (1.7-12.7); Neutrophils % 62.2 % (38.7-73.9); Platelet Count 287 T/CUMM (130-400); Red Blood Count 2.42 MC/CUMM (3.8-5.5); Red Cell Distribution Width 21.7 % (9.3-17.3); White Blood Count 12.4 T/CUMM (4-12)
[2021-04-27] MEDS: SODIUM CHLORIDE 0.9% 1,000 ML IV SCH (03:56)
[2021-04-27 04:14] LABS: Eosinophils 2 % (0-10); Hypochromasia 1+; Lymphocytes 21 % (20-55); Microcytosis 1+; Platelet Estimate Adequate; Segmented Neutrophils 67 % (50-85); Total Cells Counted 100
[2021-04-27 04:15] LABS: Atypical Lymphocytes Few
[2021-04-27 04:21] LABS: Calcium 8.1 MG/DL (8.5-10.1); Osmolality,Calculated 280.5 MOS/KG (273-304); Potassium 4.1 MMOL/L (3.5-5.1)
[2021-04-27] MEDS: METOCLOPRAMIDE 10 MG/10 ML UDCUP PO SCH (06:40)
[2021-04-27] MEDS: cefTRIAXone 1,000 MG in SODIUM CHLORIDE 0.9% 100 ML IV SCH (08:27)
[2021-04-27] MEDS: THIAMINE 200 MG/2 ML VIAL IV SCH (08:28)
[2021-04-27] MEDS: MAGNESIUM OXIDE 400 MG TABLET PO SCH (08:28)
[2021-04-27] MEDS: METOPROLOL TARTRATE 50 MG TABLET PO SCH (08:29)
[2021-04-27] MEDS: OMEPRAZOLE ODT 20 MG TABLET PER TUBE SCH (08:29)
[2021-04-27] MEDS: DIVALPROEX 500 MG TABLET PO SCH (08:29)
[2021-04-27] MEDS: ASPIRIN CHEW 81 MG TABLET PO SCH (08:29)
[2021-04-27] MEDS: LACTULOSE 20 GM/30 ML UDCUP PO SCH (08:29)
[2021-04-27] MEDS: FOLIC ACID 1 MG TABLET PO SCH (08:29)
[2021-04-27] MEDS: MULTIVITAMIN LIQUID (CENTRUM) 60 ML BOTTLE NG SCH (08:30)
== END 2021-04-27 11:55 | DRG 4 ==
LOC: EDBD → EDUNIT# → N.ED 08:10 → N.EDINP 12:13 → SUATTDRO 12:13 → N.EDINP 15:40 → N.5E 15:49 → N.ICU 04-05 02:03 → N.CVR 04-21 18:13 → N.ICU 04-24 18:25
PROVIDERS: ADMIT Emergency Medicine; ATTEND Internal Medicine
PROC: EGDWPEG (ICD-10-PCS; 2021-04-20 07:35)